=== PATIENT | female | born 1975 | race Caucasian/White ===

== ENCOUNTER 2020-08-06 07:24 | Outpatient (CLI) | payer BC, SELFPAY ==
--- NOTE | ~2020-08-06 | MM_ITS ---
EXAMINATION: MM screening víctor BI w shandra HISTORY: Screening mammogram TECHNIQUE: Craniocaudal and mediolateral oblique 3-D tomosynthesis images were obtained and synthetic 2-D images were generated. CAD analysis was submitted and interpreted. COMPARISON: None, baseline BREAST PARENCHYMAL COMPOSITION: The breasts are heterogeneously dense, which may obscure small masses . FINDINGS: RIGHT BREAST: There is no evidence of suspicious mass, calcification, or architectural distortion to suggest malignancy. LEFT BREAST: An asymmetry is present in the anterior third of the lower-outer breast 3 cm from the ni pple best appreciated on craniocaudal tomosynthesis image 16/64. IMPRESSION: 1. Left breast asymmetry. 2. Additional mammographic views and possible breast ultrasound are recommended to evaluate for malig brad and establish a baseline given that this is the first mammographic examination. BI-RADS Category 0: Incomplete: Needs additional imaging evaluation. Reviewed, dictated and finalized at location A. D EXTRACTOR OPERATOR IMPRESSION: 1. Left breast asymmetry. 2. Additional mammographic views and possible breast ultrasound are recommended to evaluate for malignancy and establish a baseline given that this is the fir st mammographic examination. BI-RADS Category 0: Incomplete: Needs additional imaging evaluation.
== END 2020-08-06 07:25 | disposition home or self-care (01) ==
LOC: ANHIMG 07:30
PROVIDERS: PCP Family Medicine
DX: Z12.31 Encounter for screening mammogram for malignant neoplasm of breast (principal); R92.8 Other abnormal and inconclusive findings on diagnostic imaging of breast
CPT/HCPCS: 77063; 77067

== ENCOUNTER 2020-09-01 13:56 | Outpatient (CLI) | payer BC, SELFPAY ==
--- NOTE | ~2020-09-01 | MM_ITS ---
EXAMINATION: MM diagnostic mammo unilat LT HISTORY: Left breast mammographic asymmetry reported on 08/06/2020 screening mammogram TECHNIQUE: Additional 3-D tomosynthesis images of the left breast were performed and synthetic 2-D im ages were generated. CAD analysis was submitted and interpreted. COMPARISON: 08/06/2020 bilateral digital screening mammogram FINDINGS: No suspicious mass is evident on these supplemental views, particularly cone compression cr aniocaudal view. The previously reported asymmetry is no longer present. IMPRESSION: 1. No mammographic evidence of malignancy 2. Routine annual mammographic screening is recommended. BI-RADS Category 1: Negative Reviewed, dictated and finalized at location A. CULTURAL SERVICES DIRECTOR
== END 2020-09-01 13:57 | disposition home or self-care (01) ==
LOC: ANHIMG 14:01
PROVIDERS: PCP Family Medicine
DX: R92.8 Other abnormal and inconclusive findings on diagnostic imaging of breast (principal)
CPT/HCPCS: 77065

== ENCOUNTER 2020-10-13 13:31 | Outpatient (CLI) | payer BC, SELFPAY | END 2020-10-13 13:32 | disposition home or self-care (01) | LOC: ANHCOVIDVC 13:31 | PROVIDERS: PCP Family Medicine | DX: Z23 Encounter for immunization (principal) | CPT/HCPCS: 0001A; 91300 ==

== ENCOUNTER 2020-11-03 14:05 | Outpatient (CLI) | payer BC, SELFPAY | END 2020-11-03 14:06 | disposition home or self-care (01) | LOC: ANHCOVIDVC 14:05 | PROVIDERS: PCP Family Medicine | DX: Z23 Encounter for immunization (principal) | CPT/HCPCS: 0002A; 91300 ==

== ENCOUNTER 2021-10-21 09:33 | Outpatient (CLI) | payer BC, SELFPAY ==
--- NOTE | ~2021-10-21 | MM_ITS ---
EXAMINATION: MM screening víctor BI w shandra HISTORY: Screening TECHNIQUE: Craniocaudal and mediolateral oblique 3-D tomosynthesis images were obtained and synthetic 2-D images were generated. CAD analysis was submitted and interpreted. COMPARISON: 08/06/2020 BREAST PARENCHYMAL COMPOSITION: The breasts are heterogeneously dense, which may obscure small masses . FINDINGS: There is no evidence of suspicious mass, calcification, or architectural distortion to sugg est malignancy in either breast. There has been no suspicious interval change. IMPRESSION: 1. No mammographic evidence of malignancy. 2. Recommend routine screening mammography in one year. BI-RADS Category 1: Negative Reviewed, dictated and finalized at location A.
== END 2021-10-21 09:34 | disposition home or self-care (01) ==
LOC: ANHIMG 09:36
PROVIDERS: PCP Family Medicine; Visit Provider Nurse Practitioner Family
DX: Z12.31 Encounter for screening mammogram for malignant neoplasm of breast (principal)
CPT/HCPCS: 77063; 77067

== ENCOUNTER 2023-04-11 00:40 | Day surgery (SDC) | payer BC, SELFPAY ==
[2023-03-30 11:27] VITALS: BMI 24.7
[2023-04-11 08:51] VITALS: BP 109/60; PULSE 70; RESP 18; TEMP 36.2; O2SAT 100
[2023-04-11] MEDS: LACTATED RINGERS 1,000 ML 150 ML IV CONT (09:01)
--- NOTE | 2023-04-11 09:23 | PM.HPGS ---
History of Present Illness History of Present Illness Consent: Risks, benefits, and alternatives have been discussed and questions answered. Patient agrees to proceed with procedure. Chief complaint: neoplasm screening Narrative: Cadence Ackerman is a 47 year old female here for first screening colonoscopy Review of Systems Constitutional: Constitutional: Denies headache(s) and Denies weakness Eyes: Eyes: Denies blurry vision ENT: Reports Normal hearing present, Denies headache(s) and Denies neck pain Cardiovascular: Cardiovascular: Denies chest pain and Denies dyspnea Respiratory: Respiratory: Denies dyspnea Gastrointestinal: Gastrointestinal: Reports no additional gastrointestinal complaints Genitourinary: Genitourinary: Denies dysuria Musculoskeletal: Musculoskeletal: Denies neck pain Integumentary/Breasts: Skin/Breast: Denies dry skin Neurologic: Reports Normal hearing present, Denies headache(s) and Denies weakness Psychiatric: Psychiatric: Denies anxiety Endocrine: Endocrine: Denies change in body appearance Hematologic/Lymphatic: Hematologic/Lymphatic: Denies easy bleeding Allergic/Immunologic: Allergic/Immunologic: Denies urticaria PMFSH Past Medical History Medical History (Updated 04/11/23 @ 09:24 by Fran Reza MD) Allergic migraine Allergies Encounter for screening colonoscopy Endometriosis Gluten intolerance Infertility Surgical History Surgical History S/P Family History Family History Other Carcinoma of colon Thyroid disease Social History Social History (Updated 06/30/20 @ 09:52 by Halley Turner) Social History: Smoking status: Never smoker Second hand tobacco smoke exposure: No Alcohol intake: current Drinks per week: 2 Substance use: never Substance use type: does not use Living arrangements: with family Occupation/Education: unemployed Additional occupation/education comments: Homemaker Gender identity (if verbalized by the patient): Female Sexual Orientation (if Verbalized by the Patient): Straight or Heterosexual Spiritual care concerns: No Meds Home Medications and Allergies Home Medications Medication Instructions Recorded Confirmed Type sumatriptan succinate 100 mg 100 mg PO .qd PRN migraine 05/17/21 03/30/23 Rx tablet (Imitrex) headache #10 tabs montelukast 10 mg tablet See Rx Instructions .Route 01/13/22 03/30/23 Rx .COMPLEX #90 tabs Allergies Allergy/AdvReac Type Severity Reaction Status Date / Time No Known Allergies Allergy Verified 04/11/23 08:54 Vital Signs Vital Signs - 24 hr 04/11/23 08:51 Temperature 97.2 F L Pulse Rate 70 Respiratory Rate 18 Blood Pressure 109/60 Pulse Oximetry 100 Oxygen Delivery Room Air Exam Const: General: comfortable and no acute distress HENMT: Face/Nose/Sinus: Normal nares present Eyes: General: appearance normal, both eyes and all related structures Neck: Neck: no JVD Resp: Auscultation: clear to auscultation bilaterally Cardio: Rate: regular rate Rhythm: regular rhythm GI: Inspection: non-distended GI Palp: Yes Soft to palpation Skin: General skin exam: normal color Neuro: General: gait normal Speech: normal speech Extrem: General: normal to inspection Psych: Mental Status: mental status grossly normal Assessment and Plan Assessment and plan (1) Encounter for screening colonoscopy: Code(s): Z12.11 - Encounter for screening for malignant neoplasm of colon Status: Acute Assessment and Plan: colonoscopy
[2023-04-11 09:42] VITALS: BP 91/55; PULSE 68; RESP 14; O2SAT 100
[2023-04-11 09:52] VITALS: BP 94/55; PULSE 62; RESP 15; O2SAT 99
[2023-04-11 10:02] VITALS: BP 104/65; PULSE 72; RESP 22; O2SAT 98
== END 2023-04-11 10:13 | disposition home or self-care (01) ==
PROVIDERS: PCP Family Medicine; Visit Provider Internal Medicine Gastroenterology
PROC: 0DJD8ZZ Inspection of Lower Intestinal Tract, Via Natural or Artificial Opening Endoscopic (ICD-10-PCS; CPT 45378; principal; 2023-04-11 10:15)
DX: Z12.11 Encounter for screening for malignant neoplasm of colon (principal); K57.30 Diverticulosis of large intestine without perforation or abscess without bleeding; K64.8 Other hemorrhoids
CPT/HCPCS: 45378; J2704; J7120

== ENCOUNTER 2023-06-28 08:35 | Outpatient (CLI) | payer BC, SELFPAY ==
--- NOTE | ~2023-06-28 | MM_ITS ---
EXAMINATION: MM screening [facility] BI w shandra HISTORY: Screening mammogram TECHNIQUE: Craniocaudal and mediolateral oblique 3-D tomosynthesis images were obtained and synthetic 2-D images were generated. CAD analysis was submitted and interpreted. COMPARISON: 10/21/2021, 09/01/2020, 08/06/2020 BREAST PARENCHYMAL COMPOSITION: The breasts are heterogeneously dense, which may obscure small masses . FINDINGS: No suspicious mass, calcification, or architectural distortion are identified in either ilsa ast to suggest malignancy. There has been no suspicious interval change. IMPRESSION: 1. No mammographic evidence of malignancy. 2. Recommend routine screening mammography in one year. BI-RADS Category 1: Negative Reviewed, dictated and finalized at location A. T ANALYST
== END 2023-06-28 08:36 | disposition home or self-care (01) ==
LOC: ANHIMG 08:38
PROVIDERS: PCP Family Medicine; Visit Provider Family Medicine
DX: Z12.31 Encounter for screening mammogram for malignant neoplasm of breast (principal)
CPT/HCPCS: 77063; 77067

== ENCOUNTER 2024-04-25 13:23 | Outpatient (CLI) | payer BC, SELFPAY ==
[2024-04-25 14:51] LABS: Thyroid Stimulating Hormone 0.255 uIU/mL (0.465-4.680)
[2024-04-26 12:18] LABS: FSH 2.3 mIU/mL; Prolactin 3.2 ng/mL
[2024-04-28 20:14] LABS: Testosterone Total 4 ng/dL (2-45)
== END 2024-04-25 13:24 | disposition home or self-care (01) ==
PROVIDERS: PCP Family Medicine; Visit Provider Student in an Organized Health Care Education/Training Program
DX: N95.1 Menopausal and female climacteric states (principal)
CPT/HCPCS: 36415; 82670; 83001; 84146; 84403; 84443

== ENCOUNTER 2024-08-05 08:52 | Outpatient (CLI) | payer BC, SELFPAY ==
--- NOTE | ~2024-08-05 | MM_ITS ---
EXAMINATION: MM screening víctor BI w shandra HISTORY: Screening. Patient on hormone replacement therapy. TECHNIQUE: Craniocaudal and mediolateral oblique 3-D tomosynthesis images were obtained and synthetic 2-D images were generated. CAD analysis was submitted and interpreted. COMPARISON: Comparison to multiple prior studies sequentially, with oldest reviewed study dated 08/06. BREAST PARENCHYMAL COMPOSITION: Dense: The breasts are heterogeneously dense, which may obscure small masses FINDINGS: Increased density of both breasts, consistent with hormone replacement therapy. There is no evidence of suspicious mass, calcification, or architectural distortion to suggest malignancy in eit her breast. There has been no suspicious interval change. IMPRESSION: 1. No mammographic evidence of malignancy. 2. Recommend routine screening mammography in one year. BI-RADS Category 1: Negative Reviewed, dictated and finalized at location B. OPERATIONS SPECIALIST
--- OUTSIDE RECORDS SUMMARY | 2024-08-05 09:12 | XMS_ITS | Encounter Summary ---
Author Organization [facility] Healthcare Address [address] [place] [address] Care Team Providers Care Internal Affairs Commander Name Role Phone Nestor Mckinley MD Primary Care Provider [phone] Bernarda Nicholson MD Unavailable [phone] Abdirahman Ram MD Unavailable [phone] No, Physician Primary Care Provider Nestor Mckinley MD Primary Care Provider [phone] Abhishek Elizabeth MD Unavailable [phone] Todd Gomez MD Primary Care Provider [phone] Encounter Details Date Type Department Care Team (Late st Contact Info) Description 11/19/2017 Documentation [facility] [address] [place] [address] Margy Knight LPN Social History Tobacco Use Types Packs/Day Years Used Date Smoking Tobacco: Never Smokeless Tobacco: Never Alcohol Use Standard Drinks/Week Comments No 0 (1 standard drink = 0.6 oz pur e alcohol) Comments No Sex and Gender Information Value Date Recorded Sex Assigned at Not on file Legal Sex Female 10:37 AM DIRECTOR OF OPERATIONS FOR THERAPY Gender Identity Not on file Sexual Orientation Not on file documented as of this encounter Miscellaneous Notes * Note - Margy Knight LPN - 11/19/2017 3:13 PM CDT 0900 Discussed info and expectations. Pt states she has a Medela pump at home. States has been doing a really good job at breast. Observed Shawna Moran, to right cradle hold transitioned to nutritive bursts. In progress. Mom has large breasts and large erect nipples. Pt denies questions or concerns at this time. Getting ready for home. Continue to track diapers, and feedings Watch for effective Transfer of milk and satiety Maternal diet discussed with rest and hydration. When to expect full milk supply to come in. Gave handouts instructing in BFSG and LC services. Diary, Hand expression, Message, Videos. Encouraged to call prn for assistance and to attend the BFSG. documented in this encounter Plan of Treatment Not on file documented as of this encounter Visit Diagnoses Not on filedocumented in this encounter Care Teams Internal Affairs Commander Relationship Specialty Start Date End Date Nestor Mckinley MD [address] [place] [address] PCP - General 07/12/17 02/19/19 No, Physician PCP - General 02/20/19 04/05/19 Nestor Mckinley MD [address] [place] [address] PCP - General 04/06/19 11/11/21 Todd Gomez MD [address] [address] PCP - General Family Medicine 11/12/21 Bernarda Nicholson MD [address] [place] [address] Manager Floral Obstetrics and Gynecology 09/06/17 Abdirahman Ram MD [address] [place] [address] Consulting Physician Obstetrics and Gynecology 10/01/18 Abhishek Elizabeth MD [address] [address] Obstetrics and Gynecology 11/11/21 documented as of this encounter
--- OUTSIDE RECORDS SUMMARY | 2024-08-05 09:12 | XMS_ITS | Clinical Summary ---
Author Organization [facility] Address [address] [place] [address] Care Team Providers Care Manager Chemistry Name Role Phone Nestor Mckinley MD Primary Care Provider [phone] Source Comments [facility],non-owned Affiliates and Associated Physician Practices is amultiple site organization consisting of ambulatory clinics and hospital sitesin [place], [place], [place] and [place]. This disclosure is being madepursuant to the Care Everywhere program and may not contain all information available regarding this patient. Last updated 18.[facility] [employer] Allergies Active Allergy Reactions Criticality Noted Date Comments Gluten Meal Urticaria,Diarrhea,GI Discomfort Medium Medications * Be aware that medications may not be up to date on this document. Alwaysverify current medications with the patient. Medication Sig Dispensed Refills Start Date End Date Status multivitamin daily (THERAGRAN) tablet Take 1 Tab by mouth daily with food Active [place]-3 350 MG CPDR once daily Active fluticasone propionate (FLONASE) 50 MCG/ACT nasal spray [place] 1-2 sprays into the nose every 24 hours Active doxycycline hyclate (VIBRAMYCIN) 100 MG capsule 05/13/2021 Active montelukast (SINGULAIR) 10 MG tablet Take by mouth every 24 hours Active predniSONE (DELTASONE) 20 MG tablet as needed 05/13/2021 Active calcium citrate TABS tablet Take 400 mg by mouth once daily Active Ferrous Sulfate 27 MG Take 10 mg by mouth once daily Active acetaminophen (TYLENOL) 325 MG tabletIndications: Endometriosis,Post operative state Take 2 (two) tablets by mouth every 6 hours as needed for Fever or Pain Maximum allowable Acetaminophen amount = 4 Grams (4000 mg) / 24 hours. 60 tablet 1 08/26/2021 Active oxyCODONE, immediate release, (ROXICODONE) 5 MG tabletIndications: Endometriosis,Post operative state Take 1 (one) tablet by mouth every 4 hours as needed for Pain 30 tablet 08/26/2021 Active Additional Information Patient not taking.Reported on 10/13/2021 ibuprofen (MOTRIN) 600 MG tabletIndications: Endometriosis,Post operative state Take 1 (one) tablet by mouth every 6 hours as needed for Pain 30 tablet 1 08/26/2021 Active Additional Information Patient not taking.Reported on 10/13/2021 ropivacaine (NAROPIN ON-Q) 0.2% infusionIndication s:Endometriosis,Po stoperative state 550 mL by Infiltration route continuous Please remove the On-Q after 72 hours. 08/26/2021 Active Additional Information Patient not taking.Reported on 10/13/2021 senna (SENOKOT) 8.6 MG tabletIndications: Endometriosis,Post operative state Take 1 (one) tablet by mouth once daily Hold for loose stools. 30 tablet 08/26/2021 Active Additional Information Patient not taking.Reported on 10/13/2021 Active Problems Problem Noted Date Diagnosed Date Postoperative state 08/26/2021 Endometriosis 02/25/2015 Dysmenorrhea 02/25/2015 Endometriosis Overview (03/26/2015): Social History Tobacco Use Types Packs/Day Years Used Date Smoking Tobacco: Never Smokeless Tobacco: Never Alcohol Use Standard Drinks/Week Comments Yes 0 (1 standard drink = 0.6 oz pur e alcohol) occ AUDIT-C Answer Date Recorded Q1: How often do you have a drink containing alc ohol? Never 08/26/2021 Average Number of Drinks Not on file 022 Frequency of Binge Drinking Not on file 08/2021 Sex and Gender Information Value Date Recorded Sex Assigned at Not on file Gender Identity Not on file Sexual Orientation Not on file Last Filed Vital Signs Vital Sign Reading Time Taken Comments Blood Pressure 108/62 10/13/2021 11:03 AM CDT Pulse 82 08/27/2021 8:20 AM BIODIESEL DIVISION MANAGER Temperature 37.1 C (98.7 F) 08/27/2021 8:20 AM BIODIESEL DIVISION MANAGER Respiratory Rate 16 08/27/2021 8:20 AM BIODIESEL DIVISION MANAGER Oxygen Saturation 98% 08/27/2021 8:20 AM BIODIESEL DIVISION MANAGER Inhaled Oxygen Concentration - - Weight 63.5 kg (140 lb) 10/13/2021 11:03 AM CDT Height 160 cm (5' 3 ) 10/13/2021 11:03 AM CDT Body Mass Index 24.8 10/13/2021 11:03 AM CDT Plan of Treatment Health Maintenance Due Date Last Done Comments COLOGUARD (AGES 45-75) - COLON CA SCREENING 1976 COLON MONITORING 1976 COLONOSCOPY - COLON CA SCREENING 1976 CT COLONOGRAPHY - COLON CA SCREENING 1976 Colorectal Cancer Screening 1976 FIT - COLON CA SCREENING 1976 FLEX SIG - COLON CA SCREENING 1976 LIPID TESTING 1976 MAMMOGRAM 1976 HIV SCREENING 12/26/1991 HEPATITIS C SCREENING 12/21/1994 DTAP/TDAP/TD VACCINES (1 - Tdap) 12/26/1995 HEPATITIS B VACCINE (1 of 3 - 19+ 3-dose series) 12/26/1995 COVID-19 VACCINE (3 - 2023- season) 2024 11/03/2020, 10/13/2020 INFLUENZA VACCINE (#1) 2024 , 03/25/2020, 04/03/2019, Additional history exists DEPRESSION SCREENING 06/26/2024 ZOSTER VACCINE (1 of 2) 2026 HIB VACCINE Aged Out No longer eligi ble based on patient's age to complete this topic HPV VACCINE Aged Out No longer eligi ble based on patient's age to complete this topic MENINGOCOCCAL (Group B) VACCINE Aged Out No longer eligible based on patient's age to complete this topic MENINGOCOCCAL VACCINE Aged Out No heaven renita eligible based on patient's age to complete this topic PNEUMOCOCCAL VACCINE Aged Out No long er eligible based on patient's age to complete this topic Care Teams Manager Chemistry Relationship Specialty Start Date End Date Nestor Mckinley MD [facility] [place] [address] PCP - General Family Medicine 02/23/15
--- OUTSIDE RECORDS SUMMARY | 2024-08-05 09:12 | XMS_ITS | Referral Summary ---
Author Organization [facility] Address [address] [place] [address] Care Team Providers Care Sifting Operator Name Role Phone Nestor Mckinley MD Primary Care Provider [phone] Source Comments [facility],non-owned Affiliates and Associated Physician Practices is amultiple site organization consisting of ambulatory clinics and hospital sitesin [place], [place], [place] and [place]. This disclosure is being madepursuant to the Care Everywhere program and may not contain all information available regarding this patient. Last updated 18.[facility] [employer] Allergies Active Allergy Reactions Criticality Noted Date Comments Gluten Meal Urticaria,Diarrhea,GI Discomfort Medium Medications * Be aware that medications may not be up to date on this document. Alwaysverify current medications with the patient. Medication Sig Dispensed Refills Start Date End Date Status multivitamin daily (THERAGRAN) tablet Take 1 Tab by mouth daily with food Active [place]-3 350 MG CPDR once daily Active fluticasone propionate (FLONASE) 50 MCG/ACT nasal spray [place] 1-2 sprays into the nose every 24 [...] AM CDT Pulse 82 08/27/2021 8:20 AM CASEWORK SPECIALIST Temperature 37.1 C (98.7 F) 08/27/2021 8:20 AM CASEWORK SPECIALIST Respiratory Rate 16 08/27/2021 8:20 AM CASEWORK SPECIALIST Oxygen Saturation 98% 08/27/2021 8:20 AM CASEWORK SPECIALIST Inhaled Oxygen Concentration - - Weight 63.5 kg (140 lb) 10/13/2021 11:03 AM CDT Height 160 cm (5' 3 ) 10/13/2021 11:03 AM CDT Body Mass Index 24.8 10/13/2021 11:03 AM CDT Plan of Treatment Not on file Care Teams Sifting Operator Relationship Specialty Start Date End Date Nestor Mckinley MD [address] [place] [address] PCP - General Family Medicine 02/23/15
--- OUTSIDE RECORDS SUMMARY | 2024-08-05 09:12 | XMS_ITS | Encounter Summary ---
Author Organization [facility] Healthcare Address [address] [place] [address] Care Team Providers Care Community Arts Worker Name Role Phone Bernarda Nicholson MD Unavailable [phone] Abdirahman Ram MD Unavailable [phone] Abhishek Elizabeth MD Unavailable [phone] Todd Gomez MD Primary Care Provider [phone] Reason for Visit * Reason Onset Date Comments Sinus Problem 07/25/2024 Encounter Details Date Type Department Care Team (Late st Contact Info) Description 07/25/2024 Nurse Triage [facility] Primary Care at [address] [address] Todd Gomez MD [address] [place] [address] [address] [place] [address] Social History Tobacco Use Types Packs/Day Years Used Date Smoking Tobacco: Never Passive Smoke Exposure: Never Smokeless Tobacco: Never Alcohol Use Standard Drinks/Week Comments Not Currently 0 (1 standard drink = 0.6 oz pur e alcohol) Humiliation, Afraid, Rape, and Kick questionnair e Answer Date Recorded Fear of Current or Ex-Partner No Emotionally Abused No 10/01/2018 Physically Abused No 10/01/2018 Sexually Abused No 10/01/2018 AUDIT-C Answer Date Recorded Q1: How often do you have a drink containing alc ohol? 2-3 times a week 05/02/2022 Q2: How many drinks containi ng alcohol do you have on a typical day when you are drinking? 1 or 2 05/02/2022 Q3: How often do you have si x or more drinks on one occasion? Never 05/02/2022 PHQ-2 Answer Date Recorded PHQ-2 Total Score (If total score is 3 or more points, staff should administer the PHQ-9) 0 03/06/2024 [place] Depression Scale Answer Date Recorded [place] Depression Scale Total 3 04/15/2019 The thought of harming myself has occurred to me . Never 04/15/2019 Comments No Sex and Gender Information Value Date Recorded Sex Assigned at Not on file Legal Sex Female 10:37 AM SILVERLIGHT DEVELOPER Gender Identity Not on file Sexual Orientation Not on file documented as of this encounter Miscellaneous Notes * Telephone Encounter - Lynn Frey MA - 07/25/2024 11:23 AM SILVERLIGHT DEVELOPER Spoke to pt, informed pt that the cost at the [facility] is the same as the copay for an office visit, an urgicare is more costly, gave pt hours of operation for [facility].. Pt voiced understanding ERLIGHT DEVELOPER * Telephone Encounter - Danielle Coffey RN - 07/25/2024 8:40 AM CST Sinus pressure and drainage. Symptoms began 4-5 days ago. Denies fever. Yellowish drainage. Sinus pressure in forehead. Nothing helping OTC. 12/03 pressure. Tylenol with Excedrin helps. Pt requesting antibiotic. Preferred Pharmacy [id number] - [place], [place] - [address] [facility] ([place] [address] & [address] [facility] [address] Allergies as of 07/25/2024 - Reviewed 05/08/2024 Allergen Reaction Noted Gluten Diarrhea, Stomach upset, and Urticaria 08/27/2021 Mold Sneezing 07/20/2021 Discussed care advice and worsening signs and symptoms of condition on which to call back. Pt verbalizes understanding. Reason for Disposition Sinus congestion as part of a cold, present < 10 days Protocols used: Sinus Pain or [id number] ERLIGHT DEVELOPER * Telephone Encounter - Danielle Coffey RN - 07/25/2024 8:38 AM CST Regarding: sinus drainage, headache ----- Message from Krystal Kennedy sent at 07/25/2024 8:28 AM SILVERLIGHT DEVELOPER ----- Symptom Based Call Chief Complaint(s): sinus drainage, headache Duration: 4 days What type of symptom(s) is the patient experiencing? Non-Emergent. Is this a new or reoccurring symptom(s)? new What have you tried to help your symptom(s)? Sinus rinse, tylenol and advil Why was appointment not scheduled? Appointment availability did not meet the patient's need. Additional Comments: lots of sinus drainage and headache, no fever- headache pain intensifies when she bends over or coughs Does message need to be routed? Yes-Action Needed ERLIGHT DEVELOPER documented in this encounter Plan of Treatment Not on file documented as of this encounter Visit Diagnoses Not on filedocumented in this encounter Care Teams Community Arts Worker Relationship Specialty Start Date End Date Todd Gomez MD [address] [place] [address] PCP - General Family Medicine 11/12/21 Bernarda Nicholson MD Wire Saw Operator Obstetrics and Gynecology 09/06/17 Abdirahman Ram MD Consulting Physician Obstetrics and Gynecology 10/01/18 Abhishek Elizabeth MD [address] [address] Obstetrics and Gynecology 11/11/21 documented as of this encounter
--- OUTSIDE RECORDS SUMMARY | 2024-08-05 09:12 | XMS_ITS | Data Portability ---
Author Organization [place] - [facility] , [facility] Address [address] [place] [address] Assessment Encounter Date Assessment Date Assessment LastModified by Organization Details LastModified Time 07/25/2024 07/25/2024 Presents with headache, cough, nasal drainage, nasal congestion x5 days. Denies fever, chills, sore throat, chest discomfort or shortness of breath. Impression: acute viral sinusitis. Differential diagnosis includes influenza, COVID, acute pharyngitis. Will trial with a short course of prednisone and ipratropim spray for sxs relief. - Discussed abx indication with pt as abx will not work on viral infection or allergies. - Advised pt to continue with supportive measures at home and contact if no improvement. - Blow nose gently - Sleep on elevated pillows - Trial of Claritin D or Zyrtec D for congestion. - Irrigate sinuses in a warm steamy shower with salt water twice a day - Apply warm compresses to the face 20-30 mins [email or web address] Not available 07/25/2024 16:29:28 Plan of Treatment Reminders Order Date Submit Date Provider Last Modified By Organization Details Last Modified Time Details Appointments None recorded. Lab None recorded. Referral None recorded. Procedures None recorded. Surgeries None recorded. Imaging None recorded. Medication Orders prednisone 20 mg tablet 2024 025 [id number], [address] [place], [id number], 16:29:38 ipratropium bromide 42 mcg (0.06 %) nasal spray 2024 025 [facility][id number], [address], [phone], 16:29:38 Patient TargetsNo targets recorded. Patient Instructions Encounter Date Encounter Id Patient Instructions Last Modified By Organization Details Last Modified Time 07/25/2024 [id number] Acute Sinusitis: Care Instructions [email or web address] Not available 07/25/2024 16:29:32 Reason for Referral None Reported. Medical Equipment None Reported. Medications Name Sig Start Date Stop Date Status Note LastModified by Organization Details LastModified Time Singulair 10 mg tablet active ADDED BY KAREN T: Not Available Not Available Not Available prednisone 20 mg tablet Take 1 tablet every day by oral route for 3 days. 2024 active Not Available Not Available Not Avai lable ipratropium bromide 42 mcg (0.06 %) nasal spray [place] 2 sprays 3 times a day by intranasal route for 5 days. 2024 active Not Available Not Available Not Avai lable Vitals None Recorded Social History None recorded. Functional Status None recorded. Mental Status None recorded. Family History Nothing Reported. Medical History No medical history recorded. Gynecological HistoryNo gynecological history recorded. Obstetrics History GPAL:G 0 P 0 0 0 0 Past Encounters Encounter ID Performer Location Encounter Start Date Encounter Closed Date Diagnosis/Indication Diagnosis SNOMED-CT Code Diagnosis ICD10 Code Diagnosis Note [id number] CHARLETTE Riggins [facility] [address] [place] [address] 07/25/2024 16:17:04 07/25/2024 22:24:07 Acute sinusitis 09358227 J01.90 Health Concerns Section Related Observation LastModified by Organization Detai ls LastModified Time None Recorded Concern Status LastModified by Organization Details LastModified Time None Recorded Advance Directives Directive None Recorded Payers Encounter Date Sequence Insurance Name Policy Number Policy June Covered Member ID June Member ID Guarantor Name 07/25/2024 1 [facility] [id number] Jeffrey Ackerman [id number] Jeffrey Ackerman 07/25/2024 2 *SELF PAY* [id number] Jeffrey Ackerman [id number] Jeffrey Meka Notes Date Note Type Note Provider Name and Address Organization Details Recorded Time 07/25/2024 text/html Call connected, patient greeted. Patient name, , telephone number, and location verified verbally with the patient. Telemedicine limitations reviewed, answered all questions the patient had about the telehealth interaction, and verbal consent obtained to treat. Clinician attests they are physically located in the following state at the time of visit: [place]. The patient also consents to the use of [employer] scribe technology.CC: Sinus infection with headachesHPI: 48yo female patient reports headaches, cough, congestion x4-5 days. The current headache is rated as a 4/10 but peaked at a 6/10 earlier. There has been no fever, chills, or sore throat, and the patient notes infrequent coughing, occurring only once or twice a day. They mention yellow nasal mucus. The patient is currently self-administering a nasal saline rinse thrice daily and Flonase nasal spray twice daily. They have not been tested for COVID-19 or influenza. The patient denies nausea or vomiting. CHARLETTE Riggins [address] [place] [address] [address], [place], [address], [facility] 07/25/2024 16:29:35 OBGyn Episode No OBEpisode recorded.
--- OUTSIDE RECORDS SUMMARY | 2024-08-05 09:12 | XMS_ITS | Patient Health Summary ---
Author Organization [facility] Address [address] [place] [address] Care Team Providers Care Irradiated Fuel Handler Name Role Phone Nestor Mckinley MD Primary Care Provider [phone] Note [address] [facility],non-owned Affiliates and Associated Physician Practices is amultiple site organization consisting of ambulatory clinics and hospital sitesin [place], [place], [place] and [place]. This disclosure is being madepursuant to the Care Everywhere program and may not contain all information available regarding this patient. Last updated 18.[facility] Allergies * Gluten Meal(Urticaria,Diarrhea,GI Discomfort) -Medium Criticality * Amoxicillin-Pot Clavulanate(Urticaria,Itching) -Medium Criticality,Inactive * Augmentin(Urticaria) -Medium Criticality,Inactive * Guaifenesin(Urticaria,Itching) -Medium Criticality,Inactive Medications * Be aware that medications may not be up to date on this document. Alwaysverify current medications with the patient. * multivitamin daily (THERAGRAN) tablet Take 1 Tab by mouth daily with food * [place]-3 350 MG CPDR once daily * fluticasone propionate (FLONASE) 50 MCG/ACT nasal spray [place] 1-2 sprays into the nose every 24 hours * doxycycline hyclate (VIBRAMYCIN) 100 MG capsule(Started 05/13/2021) * montelukast (SINGULAIR) 10 MG tablet Take by mouth every 24 hours * predniSONE (DELTASONE) 20 MG tablet(Started 05/13/2021) as needed * calcium citrate TABS tablet Take 400 mg by mouth once daily * Ferrous Sulfate 27 MG Take 10 mg by mouth once daily * acetaminophen (TYLENOL) 325 MG tablet(Started 08/26/2021) Take 2 (two) tablets by mouth every 6 hours as needed for Fever or Pain Maximum allowable Acetaminophen amount = 4 Grams (4000 mg) / 24 hours. 1 refill by 08/26/2022 * oxyCODONE, immediate release, (ROXICODONE) 5 MG tablet(Started 08/26/2021) Take 1 (one) tablet by mouth every 4 hours as needed for Pain * ibuprofen (MOTRIN) 600 MG tablet(Started 08/26/2021) Take 1 (one) tablet by mouth every 6 hours as needed for Pain 1 refill by 08/26/2022 * ropivacaine (NAROPIN ON-Q) 0.2% infusion(Started 08/26/2021) 550 mL by Infiltration route continuous Please remove the On-Q after 72 hours. * senna (SENOKOT) 8.6 MG tablet(Started 08/26/2021) Take 1 (one) tablet by mouth once daily Hold for loose stools. Active Problems Problem Noted Date Diagnosed Date Postoperative state 08/26/2021 Endometriosis 02/25/2015 Dysmenorrhea 02/25/2015 Endometriosis Social History Tobacco Use Types Packs/Day Years [...] AM CDT Pulse 82 08/27/2021 8:20 AM SHOVEL LOADER OPERATOR Temperature 37.1 C (98.7 F) 08/27/2021 8:20 AM SHOVEL LOADER OPERATOR Respiratory Rate 16 08/27/2021 8:20 AM SHOVEL LOADER OPERATOR Oxygen Saturation 98% 08/27/2021 8:20 AM SHOVEL LOADER OPERATOR Inhaled Oxygen Concentration - - Weight 63.5 kg (140 lb) 10/13/2021 11:03 AM CDT Height 160 cm (5' 3 ) 10/13/2021 11:03 AM CDT Body Mass Index 24.8 10/13/2021 11:03 AM CDT Procedures * CARDIAC RHYTHM STRIP ORDER(Performed 08/27/2021) * PATHOLOGY TISSUE EXAM (STL)(Performed 08/26/2021) Performed for Diagnosis unknown * ENDOTRACHEAL TUBE NOTE(Performed 08/26/2021) * SD LAP,FULGURATE/EXCISE LESIONS(Performed 08/26/2021) Performed for Diagnosis unknown * SD LAP,DIAGNOSTIC ABDOMEN(Performed 08/26/2021) Performed for Diagnosis unknown * LAPAROSCOPIC TOTAL HYSTERECTOMY (TLH)(Performed 08/26/2021) Performed for Diagnosis unknown * HCG URINE QUAL POCT NOTIFICATION(Performed 08/26/2021) Performed for Endometriosis, Dysmenorrhea * TYPE + SCREEN PANEL(Performed 08/26/2021) Performed for Endometriosis, Dysmenorrhea * BASIC METABOLIC PANEL (CALCIUM TOTAL)(Performed 08/26/2021) Performed for Endometriosis, Dysmenorrhea * CBC W AUTO DIFFERENTIAL(Performed 08/26/2021) Performed for Endometriosis, Dysmenorrhea * HCG URINE QUALITATIVE - POCT (IP) INTERFACED(Performed 08/26/2021) * SD SONO EXAM, TRANSVAGINAL(Performed 08/13/2021) Performed for Dysmenorrhea * IMAGING/RADIOLOGY/XRAY RESULTS ORDER(Performed 08/13/2021) * PATHOLOGY TISSUE(Performed 05/14/2021) Performed for Abnormal uterine bleeding (AUB) * HCG URINE QUALITATIVE - POINT OF CARE (AMB)(Performed 05/14/2021) Performed for examination or test, negative result * CBC W AUTO DIFFERENTIAL(Performed 04/16/2021) Performed for Menorrhagia with regular cycle * CARDIAC RHYTHM STRIP ORDER(Performed 02/27/2015) * PATHOLOGY TISSUE EXAM (STL)(Performed 02/25/2015) Performed for Endometriosis, site unspecified [617.9], Dysmenorrhea [625.3] * LAPAROSCOPY DIAGNOSTIC(Performed 02/25/2015) Performed for Endometriosis, site unspecified, Dysmenorrhea * HYSTEROSCOPY DILATATION AND CURETTAGE(Performed 02/25/2015) Performed for Endometriosis, site unspecified, Dysmenorrhea * LAPAROSCOPIC CHROMOTUBATION(Performed 02/25/2015) Performed for Endometriosis, site unspecified, Dysmenorrhea * LAPAROSCOPIC FULGURATION/EXCISION LESION PELVIC/OVARY (LASER)(Performed 02/25/2015) Performed for Endometriosis, site unspecified, Dysmenorrhea * HCG URINE QUALITATIVE - POINT OF CARE(Performed 02/25/2015) * PATHOLOGY/GENETICS HISTORICAL-ONBASE(Performed 02/25/2015) * BLOOD TYPE VERIFICATION(Performed 02/24/2015) Performed for Endometriosis, site unspecified * TYPE + SCREEN PANEL(Performed 02/24/2015) Performed for Endometriosis, site unspecified * CBC W AUTO DIFFERENTIAL(Performed 02/24/2015) Performed for Endometriosis, site unspecified * LAB HISTORICAL RESULTS-ONBASE(Performed 02/24/2015) Results * CARDIAC RHYTHM STRIP ORDER (08/27/2021 10:20 PM SHOVEL LOADER OPERATOR) Only the most recent of2 resultswithin the time period is included. Narrative 08/27/2021 10:20 PM SHOVEL LOADER OPERATOR Ordered by an unspecified provider. Scanned Document CARDIAC SERVICES ORD ERABLES * PATHOLOGY TISSUE EXAM (STL) (08/26/2021 1:25 PM SHOVEL LOADER OPERATOR) Only the most recent of2 resultswithin the time period is included. Case Report Surgical Pathology Report Case: [id number] Authorizing Provider: Abhishek Elizabeth MD Collected: 08/26/2021 01:34 PM Ordering Location: [facility] Received: 08/26/2021 02:42 PM Pathologist: Lashon Cochran MD Specimens: A) - Uterus w Cervix, Uterus, cervix, bilateral tubes B) - Cul De Sac , Right posterior 08/31/2021 10:02 AM SHOVEL LOADER OPERATOR [facility] Final Diagnosis Uterus, hysterectomy (A) - Secretory endometrium - Adenomyosis - Leiomyomata, microscopic - Cervix with no histopathologic abnormality - Serosal adhesions Fallopian tubes, bilateral, salpingectomy (A) - No histopathologic abnormality Peritoneum, right posterior cul de sac, biopsy (B) - Endometriosis 08/31/2021 10:02 AM SHOVEL LOADER OPERATOR [facility] Clinical History The patient is a 45-year-old woman. Operative procedure: hysterectomy, bilateral salpingectomy, excision of endometriosis. 08/31/2021 10:02 AM [facility] Gross Description Received in formalin, labeled with the patient's name, MRN and uterus, cervix, bilateral tubes, is a 251 g gm uterus 10.5 cm cervix to fundus, 6 cm right to left and 5 cm anterior to posterior with 2 detached, unoriented fallopian tubes measuring 4 x 0.8 cm and 4 x 0.7 cm in greatest dimension respectively. The uterine serosa is agudelo-purple and focally roughened. The 2.9 x 2.8 cm ectocervix is lined by agudelo-white, glistening mucosa with a 0.5 cm ovoid os. The 3.5 x 0.6 cm endocervical canal is lined by agudelo-pink, herringbone mucosa. The 4 x 1 cm endometrial cavity is lined by red-brown, smooth endometrium], measuring up to 0.2 cm in thickness. Focal and well-circumscribed, firm, whorled white nodules up to 0.8 cm in greatest dimension. Ipsilateral fallopian tube has smooth, purple serosa and is sectioned to show a pinpoint, stellate lumen. The contralateral fallopian tube has smooth, purple serosa and is sectioned to show a pinpoint, stellate lumen. No other gross abnormalities are present. Media Monitor sections are submitted as follows: A1-anterior cervix (polypoidal lesion) A2-lower uterine segment, A3-posterior cervix (cystic), A4-lower uterine segment, A5-A6 anterior endomyometrium full-thickness bisected, A7-A8 posterior endomyometrium full-thickness bisected, A9-ipsilateral Fallopian tube with fimbria, O12-shrbectxsfgcw fallopian tube with fimbria. After initial microscopic evaluation, additional sections are submitted as follows: A11-A13 anterior endomyometrium full-thickness, A14-A17 posterior endomyometrium bisected MA B. Labeled as cul-de-sac, right posterior is a 0.5 x 0.4 x 0.2 cm agudelo-beavers, soft tissue fragment. The specimen is entirely submitted in B1. AL 08/31/2021 10:02 AM [facility] Microscopic Description Microscopic examination substantiates the above diagnosis. Deeper levels were obtained and examined, showing similar findings. 08/31/2021 10:02 AM [facility] Disclaimer All histochemical and/or immunohistochemical results are interpreted with controls that demonstrate appropriate staining reactions before reporting results. Note on use of immunocytochemistry reagents: This test was developed and its performance characteristic determined by [facility], Department of Laboratory Medicine. It has not been cleared or approved by the U.S. Food and Drug Administration (FDA). The FDA has determined that such clearance or approval is not necessary. The test is used for clinical purpose. It should not be regarded as investigational or for research. This laboratory is certified to perform high complexity testing. The performance characteristics of the IHC/TERESA assays have been validated on formalin-fixed paraffin embedded tissues only. The assays have not been validated on decalcified tissues. Results should be interpreted with caution. 08/31/2021 10:02 AM [facility] Embedded Images 08/31/2021 10:02 AM [facility] Pathology/Cytology SPECIMEN FROM UTERINE CERVIX OBTAINED BY HYSTERECTOMY / Unknown 08/26/2021 1:25 PM SHOVEL LOADER OPERATOR 08/26/2021 2:42 PM SHOVEL LOADER OPERATOR Comment:Pre-op diagnosis: Diagnosis unknown [R69] Miscellaneous samples (specimen) ENTIRE RECTOUTERINE POUCH / Unknown 08/26/2021 1:34 PM SHOVEL LOADER OPERATOR 08/26/2021 2:42 PM SHOVEL LOADER OPERATOR Comment:Pre-op diagnosis: Diagnosis unknown [R69] Abhishek Elizabeth MD LAB - PATHOLOGY/CY TOLOGY ORDERABLES Performing Organization Address [facility]/State/[facility] Co de Phone Number [facility] [address] [place] [address] * ETT LINE PERFORMABLE (08/26/2021 10:45 AM SHOVEL LOADER OPERATOR) Narrative Rom Christy DO - 08/26/2021 10:45 AM SHOVEL LOADER OPERATOR Rom Christy DO 08/26/2021 12:02 PM Endotracheal Tube Placement: Patient Location: OR. Intubation Event Date/Time: 08/26/2021 10:44 AM Procedure: intubation (06990). Procedure Section: Sedation: under general anesthesia. Indications for Airway Management: anesthesia Induction: standard IV Patient Position: sniffing Mask Ventilation: easy. Blade Type: Bhat Blade Size: 2 Laryngoscopy View: grade 2 (partial cords) Nasal Airway Size: 7 Tube: endotracheal tube Placement: oral Tube type: cuff - inflated Tube Size (MM): 7 Depth of Insertion (CM): 20 Measured From: lips Cuff Inflated With: air Number of Attempts: 1. Placement Verified By: direct visualization, bilateral breath sounds and CO2 monitor Tube secured with: adhesive tape. Dentition unchanged? Yes Procedure Start Time: 08/26/2021 10:44 AM. Procedure End Time: 08/26/2021 10:44 AM. Procedure Total Time: 0 minutes. Staff Section Anesthesia Provider: Rom Christy DO, Performed the procedure Rom Christy DO GENERAL ANESTHESIA O RDERABLES * HCG URINE QUAL POCT NOTIFICATION (08/26/2021 10:00 AM SHOVEL LOADER OPERATOR) Comment Notification Label Only - See Separate Report 08/26/2021 10:00 AM SHOVEL LOADER OPERATOR [facility] Urine URINE / Unknown 8:42 AM SHOVEL LOADER OPERATOR Abhishek Elizabeth MD LAB - URINALYSIS O LIDIA Performing Organization Address [facility] Co de Phone Number [facility] [address] [place] [address] * TYPE + SCREEN PANEL (08/26/2021 9:04 AM SHOVEL LOADER OPERATOR) Only the most recent of2 resultswithin the time period is included. ABO Rh AB NEG 08/26/2021 9:41 AM SHOVEL LOADER OPERATOR [facility] Comment:History checked. Antibody Screen NEG 08/26/2021 9:41 AM SHOVEL LOADER OPERATOR [facility] Blood Bank BLOOD SPECIMEN / Unknown Venipuncture / Unknown 08/26/2021 9:04 AM SHOVEL LOADER OPERATOR 08/26/2021 9:09 AM SHOVEL LOADER OPERATOR Abhishek Elizabeth MD LAB - BLOOD BANK O RDERALEONIE Performing Organization Address City/[facility] Co de Phone Number [facility] [address] [place] [id number] [place] [address] * (ABNORMAL) CBC W AUTO DIFFERENTIAL (08/26/2021 9:04 AM [facility]) Only the most recent of3 resultswithin the time period is included. WBC 7.2 4.4 - 10.7 x10E9/L 08/26/2021 9:31 AM [facility] WBC Corrected 08/26/2021 9:31 AM [facility] RBC 4.52 3.80 - 5.20 x10E12/L 08/26/2021 9:31 AM [facility] Hemoglobin 12.1 12.0 - 15.6 gm/dL 08/26/2021 9:31 AM [facility] Hematocrit 38.1 35.9 - 45.5 % 08/26/2021 9:31 AM [facility] MCV 84.3 80.7 - 98.3 fl 08/26/2021 9:31 AM [facility] MCH 26.8 26.7 - 34.0 pg 08/26/2021 9:31 AM [facility] MCHC 31.8 30.8 - 35.9 gm/dL 08/26/2021 9:31 AM [facility] Platelet Count 277 153 - 416 x10E9/L 08/26/2021 9:31 AM [facility] RDW-CV 15.4(H) 12.1 - 14.9 % 08/26/2021 9:31 AM [facility] MPV 9.7 9.4 - 12.9 fl 08/26/2021 9:31 AM [facility] Neutrophils % 73.1(H) 44.0 - 73.0 % 08/26/2021 9:31 AM [facility] Lymphocytes % 20.4 20.0 - 43.0 % 08/26/2021 9:31 AM [facility] Monocytes % 4.6(L) 5.0 - 13.0 % 08/26/2021 9:31 AM [facility] Eosinophils % 1.2 0.0 - 6.0 % 08/26/2021 9:31 AM [facility] Basophils % 0.4 0.0 - 2.0 % 08/26/2021 9:31 AM [facility] Immature Granulocytes 0.3 0 - 1 % 08/26/2021 9:31 AM [facility] Neutrophil Absolute 5.27 2.01 - 7.14 x10E9/L 08/26/2021 9:31 AM [facility] Lymphocytes Absolute 1.47 1.07 - 3.94 x10E9/L 08/26/2021 9:31 AM [facility] Monocytes Absolute 0.33 0.26 - 1.07 x10E9/L 08/26/2021 9:31 AM [facility] Eosinophils Absolute 0.09 0 - 0.47 x10E9/L 08/26/2021 9:31 AM [facility] Basophils Absolute 0.03 0 - 0.08 x10E9/L 08/26/2021 9:31 AM [facility] Immature Granulocytes Absolute 0.02 0.00 - 0.06 x10E9/L 08/26/2021 9:31 AM [facility] nRBC Auto 0 /100 WBC 08/26/2021 9:31 AM [facility] Blood BLOOD SPECIMEN / Unknown Venipuncture / Unknown 08/26/2021 9:04 AM SHOVEL LOADER OPERATOR 08/26/2021 9:08 AM [facility] Abhishek Elizabeth MD LAB - HEMATOLOGY O RDERABLES Performing Organization Address City/State/[facility] Co de Phone Number [facility] [address] [place] [id number] * BASIC METABOLIC PANEL (CALCIUM TOTAL) (08/26/2021 9:04 AM [facility]) [facility] Glucose 93 70 - 105 mg/dL 08/26/2021 9:55 AM [facility] Sodium 138 136 - 145 mmol/L 08/26/2021 9:55 AM [facility] Potassium 3.8 3.5 - 5.1 mmol/L 08/26/2021 9:55 AM [facility] Chloride 106 98 - 107 mmol/L 08/26/2021 9:55 AM [facility] CO2 23 23 - 31 mmol/L 08/26/2021 9:55 AM [facility] Calcium 9.1 8.4 - 10.4 mg/dL 08/26/2021 9:55 AM [facility] Anion Gap 9 8 - 18 mmol/L 08/26/2021 9:55 AM SHOVEL LOADER OPERATOR [facility] BUN 18 7 - 18.7 mg/dL 08/26/2021 9:55 AM SHOVEL LOADER OPERATOR [facility] Creatinine 0.77 0.57 - 1.11 mg/dL 08/26/2021 9:55 AM SHOVEL LOADER OPERATOR [facility] eGFR by CKD-EPI >90 >=90 mL/min/1.7 3 m2 08/26/2021 9:55 AM SHOVEL LOADER OPERATOR [facility] Blood BLOOD SPECIMEN / Unknown Venipuncture / Unknown 08/26/2021 9:04 AM SHOVEL LOADER OPERATOR 08/26/2021 9:08 AM SHOVEL LOADER OPERATOR Narrative [facility] - 08/26/2021 9:55 AM SHOVEL LOADER OPERATOR eGFR result was calculated using the updated CKD-EPI Creatinine Equations (2020). Prior to go live 2021 the eGFR was calculated using the MDRD calculation. Please note Reference Range change. Abhishek Elizabeth MD LAB - CHEMISTRY OR DERABLES Performing Organization Address City/[facility]/ZIP Co de Phone Number [facility] [address] [place], [place] [id number] * HCG URINE QUALITATIVE - POCT (IP) INTERFACED (08/26/2021 8:51 AM SHOVEL LOADER OPERATOR) HCG Qual Urine Negative Negative 08/26/2021 8:56 AM SHOVEL LOADER OPERATOR [facility] Urine URINE / Unknown 08/26/2021 8 :51 AM SHOVEL LOADER OPERATOR 08/26/2021 8:56 AM SHOVEL LOADER OPERATOR Abhishek Elizabeth MD LAB - POINT OF CAR E ORDERABLES [facility] [address] [place] [address] * SD SONO EXAM, TRANSVAGINAL (08/13/2021 9:11 AM SHOVEL LOADER OPERATOR) Narrative Joceline Castaneda - 08/13/2021 9:11 AM SHOVEL LOADER OPERATOR Joceline Castaneda 08/13/2021 9:11 AM Documentation in digisonics Abhishek Elizabeth MD PROCEDURE/MINOR BREWER RGICAL ORDERABLES * IMAGING RADIOLOGY XRAY RESULTS ORDER (08/13/2021) Anatomical Region Laterality Modality Other Narrative 08/13/2021 Ordered by an unspecified provider. Scanned Document IMAGING * PATHOLOGY TISSUE (05/14/2021 4:09 PM SHOVEL LOADER OPERATOR) Case Report Surgical Pathology Report Case: [id number] Authorizing Provider: Tom Quiroz Jr., MD Collected: 05/14/2021 04:09 PM Ordering Location: [facility] Obstetrics Received: 05/17/2021 12:33 PM Gynecology [facility] Women's [facility] Pathologist: Marcos Bhat MD Specimen: Endometrium, EMB 05/18/2021 11:10 AM [facility] Final Diagnosis Endometrium, biopsy: - Benign weakly proliferative endometrium 05/18/2021 11:10 AM [facility] Microscopic Description and Comment Microscopic examination substantiates the final diagnosis. 05/18/2021 11:10 AM [facility] Clinical History The patient is a 45 year old female with abnormal uterine bleeding 05/18/2021 11:10 AM [facility] Gross Description The requisition and specimen(s) are identified with the patient's name, Cadence Ackerman. Received in formalin, specimen A, EMB is an aggregate of brown-agudelo soft tissue and blood clot, 4 x 2.5 x 0.3 cm. Entirely submitted in cassette A1-A2. LJ 05/18/2021 11:10 AM [facility] Disclaimer The performance characteristics of all immunohistochemical and indirect immunofluorescence stains (if any) cited in this report were determined by the [facility] of [facility]. Some of these tests were developed by our own laboratory and have not been cleared or approved by the US Food and Drug Administration. The FDA does not require this test to go through premarket FDA review. These tests are used for clinical purposes. They should not be regarded as investigational or for research. This laboratory is certified under the Clinical Laboratory Improvement Amendments (CLIA) as qualified to perform high complexity clinical laboratory testing. This case has been personally reviewed and interpreted by the attending (teaching) pathologist. 05/18/2021 11:10 AM [facility] Embedded Images 05/18/2021 11:10 AM [facility] Pathology/Cytolo gy ENTIRE ENDOMETRIUM / Unknown 05/14/2021 4:09 PM SHOVEL LOADER OPERATOR 05/17/2021 12:33 PM SHOVEL LOADER OPERATOR Tom Quiroz Jr., MD LAB - PATHOLOGY/ CYTOLOGY ORDERABLES [facility] [address] [phone] * (ABNORMAL) HCG URINE QUALITATIVE - POINT OF CARE (AMB) (05/14/2021) HCG Qual Urine Negative Negative QC Verified No(A) Yes Urine URINE / Unknown 05/14/2021 Tom Quiroz Jr., MD LAB - POINT OF ARE ORDERABLES * HCG URINE QUALITATIVE - POINT OF CARE (IP) (02/25/2015 10:58 AM CDT) HCG Qual Urine Negative Negative [facility] POCT TESTING QC Verified Yes Yes [facility] POC T TESTING Urine specimen (specimen) URINE / Unknown 02/25/2015 10:58 AM CDT Tom Quiroz Jr., MD LAB - POINT OF ARE ORDERABLES Performing Organization Address City/[facility]/ZIP Co de Phone Number [facility] POCT TESTING [address] [phone] * PATHOLOGY/GENETICS HISTORICAL-ONBASE (02/25/2015) 02/25/2015 Narrative [facility] - 03/03/2015 10:23 AM CDT Historical Provider LAB - CHEMISTRY O RDERABLES [facility] [address] * BLOOD TYPE VERIFICATION (02/24/2015 12:21 PM CDT) ABO AB 02/24/2015 1:31 PM CDT [facility] Rh Type Negative 02/24/2015 1:31 PM CDT [facility] Miscellaneous samples (specimen) BLOOD SPECIMEN / Unknown Venipuncture / Unknown 02/24/2015 12:21 PM CDT 02/24/2015 12:21 PM CDT Tom Quiroz Jr., MD LAB - BLOOD BANK ORDERABLES Performing Organization Address City/[facility] Co de Phone Number [facility] [address] * LAB HISTORICAL RESULTS-ONBASE (02/24/2015) 02/24/[address] [facility] - 02/25/2015 8:21 AM CDT Historical Provider LAB - CHEMISTRY O RDERABLES Performing Organization Address City/[facility]/ZIP Co de Phone Number [place] [phone] [address] Care Teams Irradiated Fuel Handler Relationship Specialty Start Date End Date Nestor Mckinley MD [facility] [place] [address] PCP - General Family Medicine 02/23/15
--- OUTSIDE RECORDS SUMMARY | 2024-08-05 09:12 | XMS_ITS | Encounter Summary ---
Author Organization [facility] Address [address] [place] [address] Phone Care Team Providers Care Supervisor Hospitality House Name Role Phone Nestor Mckinley MD Primary Care Provider [phone] Bernarda Nicholson MD Unavailable [phone] Abdirahman Ram MD Unavailable [phone] No, Physician Primary Care Provider [phone] Nestor Mckinley MD Primary Care Provider [phone] Abhishek Elizabeth MD Unavailable [phone] Todd Gomez MD Primary Care Provider [phone] Encounter Details Date Type Department Care Team (Late st Contact Info) Description 10/27/2017 Orders Only [facility] ProviderKassandra MD [address] [place] [id number] Social History Tobacco Use Types Packs/Day Years Used Date Smoking Tobacco: Never Smokeless Tobacco: Never Alcohol Use Standard Drinks/Week Comments No 0 (1 standard drink = 0.6 oz pur e alcohol) Comments Yes Sex and Gender Information Value Date Recorded Sex Assigned at Not on file Legal Sex Female 10:37 AM CHARGE ENTRY CLERK Gender Identity Not on file Sexual Orientation Not on file documented as of this encounter Plan of Treatment Not on file documented as of this encounter Procedures Procedure Name Priority Date/Time Associated Diagnosis Comments DISCHARGE LABORATORY CUMULATIVE REPORT 10/27/2017 12:00 AM CDT documented in this encounter Results * DISCHARGE LABORATORY CUMULATIVE REPORT (10/27/2017 12:00 AM CDT) Narrative 10/27/2017 12:00 AM CDT Ordered by an unspecified provider. us Historical Provider LAB BLOOD ORDERABLES Kalina l Result documented in this encounter Visit Diagnoses Not on filedocumented in this encounter Care Teams Supervisor Hospitality [facility] Relationship Specialty Start Date End Date Nestor Mckinley MD [address] [place] [address] PCP - General 07/12/17 02/19/19 No, Physician PCP - General 02/20/19 04/05/19 Nestor Mckinley MD [address] [place] [address] PCP - General 04/06/19 11/11/21 Todd Gomez MD [address] [place] [address] PCP - General Family Medicine 11/12/21 Bernarda Nicholson MD [address] [place] [address] Solid Waste Management Engineer Obstetrics and Gynecology 09/06/17 Abdirahman Ram MD [address] [place] [address] Consulting Physician Obstetrics and Gynecology 10/01/18 Abhishek Elizabeth MD [address] [place] [address] Obstetrics and Gynecology 11/11/21 documented as of this encounter
--- OUTSIDE RECORDS SUMMARY | 2024-08-05 09:13 | XMS_ITS | Encounter Summary ---
Author Organization [facility] Address [address] [place] [address] Phone Care Team Providers Care Scrap Kettle Tender Name Role Phone Nestor Mckinley MD Primary Care Provider Bernarda Nicholson MD Unavailable [phone] Abdirahman Ram MD Unavailable [phone] No, Physician Primary Care Provider [phone] Nestor Mckinley MD Primary Care Provider [phone] Abhishek Elizabeth MD Unavailable [phone] Todd Gomez MD Primary Care Provider Encounter Details Date Type Department Care Team (Latest Contact Info) Description 07/13/2017 Orders Only [facility] CONVERSION Scanning, Provider Social History Tobacco Use Types Packs/Day Years Used Date Smoking Tobacco: Never Assessed Comments Unknown Sex and Gender Information Value Date Recorded Sex Assigned at Not on file Legal Sex Female 10:37 AM LINE STAKER Gender Identity Not on file Sexual Orientation Not on file documented as of this encounter Plan of Treatment Not on file documented as of this encounter Procedures Procedure Name Priority Date/Time Associated Diagnosis Comments OBSTETRIC/GYNECOLOGY ULTRASONOGRAPHY REPORT 07/13/2017 8:39 PM LINE STAKER documented in this encounter Results * OBSTETRIC/GYNECOLOGY ULTRASONOGRAPHY REPORT (07/13/2017 8:39 PM LINE STAKER) Anatomical Region Laterality Modality Ultrasound us Provider Scanning IMG OB US PROCEDURES Final Res ult documented in this encounter Visit Diagnoses Not on filedocumented in this encounter Care Teams Scrap Kettle Tender Relationship Specialty Start Date End Date Nestor Mckinley MD [address] [place] [address] PCP - General 07/12/17 02/19/19 No, Physician PCP - General 02/20/19 04/05/19 Nestor Mckinley MD [address] [place] [address] PCP - General 04/06/19 11/11/21 Todd Gomez MD [address] [place] [address] PCP - General Family Medicine 11/12/21 Bernarda Nicholson MD [address] [place] [address] Roll Builder Obstetrics and Gynecology 09/06/17 Abdirahman Ram MD [address] [place] [address] Consulting Physician Obstetrics and Gynecology 10/01/18 Abhishek Elizabeth MD [address] [place] [address] Obstetrics and Gynecology 11/11/21 documented as of this encounter
--- OUTSIDE RECORDS SUMMARY | 2024-08-05 09:13 | XMS_ITS | Referral Summary ---
Author Organization [facility] Address [address] [place] [address] Care Team Providers Care Echometer Engineer Name Role Phone Bernarda Nicholson MD Unavailable Abdirahman Ram MD Unavailable Abhishek Elizabeth MD Unavailable [phone] Todd Gomez MD Primary Care Provider Encounters Date Type Department Care Team Description 07/25/2024 Nurse Triage [facility] at [address] [address] Todd Gomez MD 05/08/2024 7:00 AM COMPUTER SYSTEMS SOFTWARE ENGINEER Office Visit [facility] at [address] [address] Sosa Miller NP Acute non-recurrent frontal sinusitis (Primary Dx) 05/07/2024 Nurse Triage [facility] at [address] [address] Adina Neves RN from Last 3 Months Allergies Active Allergy Reactions Criticality Noted Date Comments Gluten Diarrhea,Stomach upset,Urticaria Medium 09/2021 Mold Sneezing Low 07/20/2021 Medications omega 1-aqm-gji-fish oil 100-160-1,000 mg capsule 6 Active multivitamin capsule Take 1 capsule by mouth daily Active montelukast (SINGULAIR) 10 mg tablet Take 1 tablet (10 mg total) by mouth nightly 90 tablet 3 4 Active rizatriptan (MAXALT) 10 mg tabletIndicatio ns:Migraine Take 1 tablet (10 mg total) by mouth once as needed for migraine May repeat in 2 hours if unresolved. Do not exceed 30 mg in 24 hours. 9 tablet 1 4 Active estradioL (VIVELLE-DOT) 0.1 mg/24 hr APPLY 1 PATCH TWICE WEEKLY. ALTERNATING 3 DAYS FOR 1 PATCH THEN 4 DAYS FOR OTHER PATCH 4 Active Active Problems Problem Noted Date Diagnosed Date Migraine without aura and wi thout status migrainosus, not intractable 03/06/2024 Assessment & Plan (03/06/2024 9:34 AM CDT): Has migraines rarely intermittently. Chronic, stable, continue Maxalt p.r.n. Seasonal allergic rhinitis due to pollen 024 Assessment & Plan (03/06/2024 9:34 AM CDT): Seasonal, chronic, continue Singulair 10 mg once daily ENMA (generalized anxiety disorder) 12/28/2022 Well adult exam 07/19/2022 Assessment & Plan (03/06/2024 9:33 AM CDT): -Recommended: Healthy diet. Avoiding junk food/fast food. -30 minutes of exercise most days of the week. Increase to 45 minutes for weight loss. Immunizations: Recommended influenza vaccine, we are giving in March call if any problems Follow-up in 1 year. Assessment & Plan (07/19/2022 8:54 AM COMPUTER SYSTEMS SOFTWARE ENGINEER): A(n) yearly well adult visit has been performed today. Cadence Tim is not up to date on screening tests. She is in need of Breast cancer screening, Colon cancer screening and Cervical cancer screening. She is up to date on needed preventative vaccinations. Medications reviewed, changes documented as per the medical record and discussed with patient along with risks vs benefits. PMS (premenstrual syndrome) 05/02/2022 Overview (05/02/2022): 04/2022: Labs WNL. Pt on lexapro per PCP. Recommend adding exercise and increase in dose. Will call if needed. Assessment & Plan (05/02/2022 9:42 AM COMPUTER SYSTEMS SOFTWARE ENGINEER): Check labs-call pt with results. Discussed STREET ROLLER ENGINEER vs perimenopause. Discussed importance of exercise, diet/hydration and plenty of protein intake during times of month when she is feeling more irritable. Discussed possible increase in Lexapro dose vs. Switch to Prozac. Advised would not Rx hormones for PMS since she has had TLH. Pt aware if thyroid labs or HgbA1C abnormal, will refer to PCP for management. RTC for WWE/call PRN. Resolved Problems Problem Noted Date Diagnosed Date Resolved Date Menorrhagia with regular cycle 04/25/2022 05/02/2022 Overview (04/25/2022): 2020-US normal - trial Lysteda Abdominal cramping 07/21/2021 Assessment & Plan (07/21/2021 9:21 PM COMPUTER SYSTEMS SOFTWARE ENGINEER): Lab. Keep track of cramping and grade of pain. Note if there is associated with menieses ot with something else. Watch for anything cramping that doesn't stop and seek medical help. Fatigue associated with anemia 07/20/2021 03/06/2024 Assessment & Plan (07/21/2021 9:12 PM COMPUTER SYSTEMS SOFTWARE ENGINEER): Lab today. Continue with eating a balanced diet. Push fluid Continue monitoring menses for increased breathing. Talked about clarence bleeding and making sure that she is seeking help and not waiting for it to lessens. Anemia due to blood loss 07/20/202104/2024 Assessment & Plan (07/20/2021 11:00 PM COMPUTER SYSTEMS SOFTWARE ENGINEER): Lab work CBC, CMP,Iron panel, UA, Cholesterol,Vit D Drink adequate fluids. NO ice tea> Can eat lean red meat. Foods with iron. Cook in iron skillet. Watch bleeding, is goes to a [place] bleeding with or without large clots seek Medical help. Situational anxiety 07/20/2021 03/06/20 24 Assessment & Plan (11/28/2022 8:59 AM CDT): Anxiety not at goal Increase Wellbutrin xl to 300 mg daily F/u 4 weeks Assessment & Plan (07/20/2021 11:12 PM COMPUTER SYSTEMS SOFTWARE ENGINEER): States is dealing well with anxiety. States is doing better because she is getting more rest. Her children are back in school. Lbncps-cm-ogu is healthier. Eating better. Will get lab work done . Endometriosis of other specified sites 01/01/2019 03/06/2024 Rh negative state in antepartum period 12/04/2018 03/26/2022 Assessment & Plan (01/01/2019 1:39 PM CDT): Rhogam candidate Assessment & Plan (12/04/2018 12:37 PM CDT): Rhogam candidate Supervision of high-risk pre gnancy, second trimester 10/29/2018 03/26/2022 Assessment & Plan (01/01/2019 1:42 PM CDT): SIUP at 23+4 weeks gestation in tv presentation with an EFW of 648g (60%), JAVIER normal CL 54mm RTN to Dr Nicholson in 2 weeks (gct) RTN to the practice in 4 weeks with repeat growth and cl. Will need rhogam at this visit Assessment & Plan (12/04/2018 12:35 PM CDT): SIUP at 19 weeks and 4 weeks gestation in vertex presentation with an EFW of 315g (59%) Normal JAVIER, anterior placenta Anatomy performed today with no structural malformations CL 67mm with cerclage seen in place CL in 2 weeks/appt with Dr. Nicholson RTN to Practice in 4 weeks with growth/CL Assessment & Plan (10/29/2018 2:32 PM CDT): SIUP at 14+3 weeks gestation EFW 129g (>95%) Variable presentation, normal JAVIER, anterior placenta Cl 69mm Follow up with Dr. Nicholson's office in 2 weeks with a cervical length ultrasound Follow up at the Perinatology office in 4 weeks for an appt and her anatomy scan. Antepartum multigravida of a dvanced maternal age 0410/02/2018 03/26/2022 Assessment & Plan (01/01/2019 1:40 PM CDT): IVF with donor eggs (30 Years old) Anatomy complete with no structural malformations noted Assessment & Plan (12/04/2018 12:37 PM CDT): Donor eggs (30 y/o) used for conception Assessment & Plan (10/29/2018 2:29 PM CDT): Anatomy pending Cervical incompetence affect ing , antepartum 10/02/2018 03/26/2022 Overview (10/02/2018): Added automatically from request for surgery [id number] Assessment & Plan (01/01/2019 1:38 PM CDT): Cervical cerclage in place Assessment & Plan (12/04/2018 12:36 PM CDT): Cerclage in place CL 67mm Assessment & Plan (10/29/2018 2:13 PM CDT): Cervical cerclage seen in place CL 69mm Continue vaginal prometrium at 200mg daily Cervical length with Dr. Nicholson's office in 2 weeks resulting from ass isted reproductive technology, antepartum 10/01/201806/2021 Assessment & Plan (01/01/2019 1:36 PM CDT): Pt declines echo Assessment & Plan (12/04/2018 12:34 PM CDT): Reviewed recommendations for echocardiogram Pt plans to speak with Dr. Nicholson and will call the office to schedule between 22-26 weeks gestation if desires Assessment & Plan (10/29/2018 2:13 PM CDT): IVF with donor eggs (30 years old) echo between 22-26 weeks gestation History of 10/01/2018 022 Assessment & Plan (01/01/2019 1:40 PM CDT): Plans repeat on 04/15/[address] Lyn Ram to remove cerclage post procedure Subchorionic hemorrhage in first trimester 10/01/2018 10/29/2018 Cervical incompetence affect ing management of mother, antepartum 08/02/2017 10/29/2018 Advanced maternal age, primi , antepartum 08/02/2017 10/02/2018 History of loop electrosurgi aliyah excision procedure (LEEP) of cervix affecting , antepartum 08/02/2017 03/26/2022 Assessment & Plan (01/01/2019 1:38 PM CDT): Cerclage in place CL 54mm Reassess in [address] Nicholson Reassess in 4 weeks and an appt here at the Practice Failure to progress in labor 01/01/2019 Immunizations Name Administration Dates Next Due Influenza, Quadrivalent, Spl it, Preservative Free, Intramuscular 04/05/2023,04/20/2022,04/03/2019,03/20,03/19/2018,03/27/2017 Influenza, Trivalent, IM (MDV) 03/19/2014,2012,04/23/2012 Influenza, Trivalent, Preser vative Free, Intramuscular 04/20/2015 Influenza, Unspecified 03/28/2024,2023(Deferred: Patient Refused),06/26/2023(Deferred: Patient Refused),06/26/2022(Deferred: Patient Refused),06/26/2021(Deferred: Patient Refused),04/19/2021,04/09/2020(Deferre d: Patient Refused) Rho (D) Immune Globulin 08/04/2017 Tdap 02/11/2019,10/03/2017,10/02/2017 Social History Tobacco Use Types Packs/Day Years Used Date Smoking Tobacco: Never Passive Smoke Exposure: Never Smokeless Tobacco: Never Tobacco Cessation:Counseling Given: Not Answered Alcohol Use Standard Drinks/Week Comments Not Currently [...] staff should administer the PHQ-9) 0 03/06/2024 Thornton Depression Scale Answer Date Recorded Thornton Depression Scale Total 3 04/15/2019 The thought of harming myself has occurred to me . Never 04/15/2019 Comments No Sex and Gender Information Value Date Recorded Sex Assigned at Not on file Legal Sex Female 10:37 AM COMPUTER SYSTEMS SOFTWARE ENGINEER Gender Identity Not on file Sexual Orientation Not on file Last Filed Vital Signs Vital Sign Reading Time Taken Comments Blood Pressure 124/78 05/08/2024 7:14 AM COMPUTER SYSTEMS SOFTWARE ENGINEER Pulse 89 05/08/2024 7:14 AM COMPUTER SYSTEMS SOFTWARE ENGINEER Temperature 36.7 C (98 F) 05/08/2024 7:14 AM COMPUTER SYSTEMS SOFTWARE ENGINEER Respiratory Rate 16 05/08/2024 7:14 AM COMPUTER SYSTEMS SOFTWARE ENGINEER Oxygen Saturation 96% 05/08/2024 7:14 AM COMPUTER SYSTEMS SOFTWARE ENGINEER Inhaled Oxygen Concentration - - Weight 67.8 kg (149 lb 6.4 oz) 05/08/2024 7:14 A M COMPUTER SYSTEMS SOFTWARE ENGINEER Height 160 cm (5' 3 ) 05/08/2024 7:14 AM COMPUTER SYSTEMS SOFTWARE ENGINEER Body Mass Index 26.47 05/08/2024 7:14 AM COMPUTER SYSTEMS SOFTWARE ENGINEER Plan of Treatment Not on file Procedures Procedure Name Priority Date/Time Associated Diagnosis Comments HM MAMMOGRAPHY Routine 06/28/2023 HM COLONOSCOPY Routine 04/11/2023 HEPATITIS C ANTIBODY Routine 09/14/2018 9:39 AM CDT from Last 3 Months or Most Recently Relevant to Health Maintenance Results * HM MAMMOGRAPHY (06/28/2023) Historical Provider HEALTH MAINTENANCE Final Result * COLONOSCOPY (04/11/2023) Historical Provider HEALTH MAINTENANCE Final Result * Hepatitis C antibody (09/14/2018 9:39 AM CDT) Hep C Ab Non-Reactiv e Non-Reactiv e [facility] Blood specimen (specimen) 09/14/2018 9:39 AM CDT 09/14/2018 12:15 PM CDT Narrative [facility] - 09/14/2018 12:59 PM CDT Notinfile Unknown LAB MICROBIOLOGY - GENERAL ORD ERABLES Final Result [facility] [address] Department [place] [address] from Last 3 Months or Most Recently Relevant to Health Maintenance Insurance [employer] ANTHEM PREFERRED BLUE ACCESS OOS Advance Directives For more information, please contact: [phone] * Full Code (Latest Code Status on File) Date Activated Date Inactivated Comments 04/12/2019 7:25 PM 04/15/2019 9:26 PM * Full Code Date Activated Date Inactivated Comments 04/12/2019 1:26 PM 04/12/2019 7:25 PM Full CPR i n case of cardiopulmonary arrest * Full Code Date Activated Date Inactivated Comments 10/18/2018 11:32 AM 10/19/2018 4:55 PM * Full Code Date Activated Date Inactivated Comments 11/18/2017 7:56 PM 11/22/2017 1:38 PM * Full Code Date Activated Date Inactivated Comments 11/16/2017 10:29 PM 11/18/2017 7:55 PM Full CPR i n case of cardiopulmonary arrest Care Teams Echometer Engineer Relationship Specialty Start Date End Date Todd Gomez MD [address] [place] [address] PCP - General Family Medicine 11/12/21 Bernarda Nicholson MD Roll Cleaner Obstetrics and Gynecology 09/06/17 Abdirahman Ram MD Consulting Physician Obstetrics and Gynecology 10/01/18 Abhishek Elizabeth MD [address] [place] [address] Obstetrics and Gynecology 11/11/21
--- OUTSIDE RECORDS SUMMARY | 2024-08-05 09:13 | XMS_ITS | Clinical Summary ---
Author Organization [facility] Building C Address [address] [place] [address] Care Team Providers Care Percussion Tuner Name Role Phone Bernarda Nicholson MD Unavailable [phone] Abdirahman Ram MD Unavailable Kwaku-Abhishek Cai MD Unavailable [phone] Todd Gomez MD Primary Care Provider Allergies Active Allergy Reactions Criticality Noted Date Comments Gluten Diarrhea,Stomach upset,Urticaria Medium 09/2021 Mold Sneezing Low 07/20/2021 Medications omega 2-kjp-hkm-fish oil 100-160-1,000 mg capsule 6 Active multivitamin [...] year. Assessment & Plan (07/19/2022 8:54 AM ADULT CARE PROVIDER): A(n) yearly well adult visit has been [...] needed. Assessment & Plan (05/02/2022 9:42 AM ADULT CARE PROVIDER): Check labs-call pt with results. Discussed COMMUNITY RELATIONS LIAISON vs perimenopause. Discussed importance of exercise, diet/hydration [...] with regular cycle 04/25/2022 05/02/2022 Overview (04/25/2022): US normal - trial Lysteda Abdominal cramping 07/21/2021 Assessment & Plan (07/21/2021 9:21 PM ADULT CARE PROVIDER): Lab. Keep track of cramping and grade of pain. Note if there is associated with menieses ot with something else. Watch for anything cramping that doesn't stop and seek medical help. Fatigue associated with anemia 07/20/2021 03/06/2024 Assessment & Plan (07/21/2021 9:12 PM ADULT CARE PROVIDER): Lab today. Continue with eating a balanced diet. Push fluid Continue monitoring menses for increased breathing. Talked about clarence bleeding and making sure that she is seeking help and not waiting for it to lessens. Anemia due to blood loss 07/20/202104/2024 Assessment & Plan (07/20/2021 11:00 PM ADULT CARE PROVIDER): Lab work CBC, CMP,Iron panel, UA, Cholesterol,Vit [...] weeks Assessment & Plan (07/20/2021 11:12 PM ADULT CARE PROVIDER): is dealing well with anxiety. States is doing better because she is getting more rest. Her children are back in school. [id number] is healthier. Eating better. Will get lab [...] (10/02/2018): Added automatically from request for surgery [id number] Assessment & Plan (01/01/2019 1:38 PM CDT): [...] Practice Failure to progress in labor 01/01/2019 Encounters Date Type Department Care Team Description 07/25/2024 Nurse Triage [facility] at [address] [address] Todd Gomez MD 05/08/2024 7:00 AM ADULT CARE PROVIDER Office Visit [facility] [address] [address] Sosa Miller NP Acute non-recurrent frontal sinusitis (Primary Dx) 05/07/2024 Nurse Triage [facility] at [address] [address] Adina Neves RN from Last 3 Months Immunizations Name Administration Dates Next Due Influenza, Quadrivalent, Spl it, Preservative Free, Intramuscular 04/05/2023,04/20/2022,04/03/2019,03/20,03/19/2018,03/27/2017 Influenza, Trivalent, IM (MDV) 03/19/2014,2012,04/23/2012 Influenza, Trivalent, Preser vative Free, Intramuscular 04/20/2015 Influenza, Unspecified 03/28/2024,2023(Deferred: Patient Refused),06/26/2023(Deferred: Patient Refused),06/26/2022(Deferred: Patient Refused),06/26/2021(Deferred: Patient Refused),04/19/2021,04/09/2020(Deferre d: Patient Refused) Rho (D) Immune Globulin 08/04/2017 Tdap 02/11/2019,10/03/2017,10/02/2017 Surgical History Surgery Date Site/Laterality Comments CERVICAL BIOPSY W/ LOOP ELECTRODE EXCISION EXPLORATORY LAPAROTOMY 2015 APPENDECTOMY 2002 SECTION LTCS X 2 LAPAROSCOPIC TOTAL HYSTERECTOMY 08/26/2021 B/L Salpingectomy - Ovarian Conservation Medical History Medical History Date Comments Endometriosis Migraine Female infertility Rh incompatibility Fatigue associated with anemia 07/20/2021 Cervical dysplasia LEEP 2004 Cystic fibrosis gene carrier Menorrhagia with regular cycle 2 020-US normal - trial Lysteda Family History Medical History Relation Name Comments Depression Father Hypertension Father Arthritis Maternal Grandfather Cancer Maternal Grandfather Depression Maternal Grandfather Arthritis Maternal Grandmother COPD Maternal Grandmother Depression Maternal Grandmother Stroke Maternal Grandmother Arthritis Paternal Grandfather Cancer Paternal Grandfather Arthritis Paternal Grandmother Heart disease Paternal Grandmother Blood Clot Sister Cystic fibrosis Sister Depression Sister Diabetes Neg Hx Relation Name Status Comments Father Father's Sister Alive Maternal Grandfather Maternal Grandmother Paternal Grandfather Paternal Grandmother Sister Social History Tobacco Use Types Packs/Day Years [...] staff should administer the PHQ-9) 0 03/06/2024 Henrietta Depression Scale Answer Date Recorded Henrietta Depression Scale Total 3 04/15/2019 The thought of harming myself has occurred to me . Never 04/15/2019 Comments No Sex and Gender Information Value Date Recorded Sex Assigned at Not on file Legal Sex Female 10:37 AM ADULT CARE PROVIDER Gender Identity Not on file Sexual Orientation Not on file Obstetrics History Para Term AB IAB SAB Ectopic Multiple Livin g Live Births 2 2 2 0 2 2 Date Outcome GA Total Labor Labor/2nd/3rd Weight Sex Type Anes PTL Gladys A1 A5 Name Clin 2017 Term 38w 4d 0h 01m 0h 01m 3.08 kg (6 lb 12.6 oz) F CS-LT ranv Epidur al Y Livin g 8 9 RONAT ,GIRL Bernarda Mercado MD Complications: Intolera nce Delivery Location:[facility] Fac[facility] ([facility]) 2018 Term 38w 0d 0h 02m 0h 02m 2.885 kg (6 lb 5.8 oz) F CS-LT ranv Spinal N Livin g 8 9 RONAT ,GIRL Bernarda Mercado MD Complications:None Delivery Location:This Facil ity ([facility] PROCEDURE) Comments:small red bir thmark inner left thigh Comments Cerclage Placed at 23 weeks Last Filed Vital Signs Vital Sign Reading Time Taken Comments Blood Pressure 124/78 05/08/2024 7:14 AM ADULT CARE PROVIDER Pulse 89 05/08/2024 7:14 AM ADULT CARE PROVIDER Temperature 36.7 C (98 F) 05/08/2024 7:14 AM ADULT CARE PROVIDER Respiratory Rate 16 05/08/2024 7:14 AM ADULT CARE PROVIDER Oxygen Saturation 96% 05/08/2024 7:14 AM ADULT CARE PROVIDER Inhaled Oxygen Concentration - - Weight 67.8 kg (149 lb 6.4 oz) 05/08/2024 7:14 A M ADULT CARE PROVIDER Height 160 cm (5' 3 ) 05/08/2024 7:14 AM ADULT CARE PROVIDER Body Mass Index 26.47 05/08/2024 7:14 AM ADULT CARE PROVIDER Plan of Treatment Health Maintenance Due Date Last Done Comments Hepatitis B Screening 1994 Breast Cancer Screening-Mammogram 06/28/2024 06/28/2023 Depression Screening 03/06/2025 03/06/2024, 04/05/2023, 12/28/2022, Additional history exists Regular Well Visit/Exam 18-03/06/2025 03/06/2024, 07/19/2022 DTaP/Tdap/Td Vaccine (4 - Td or Tdap) 02/11/2029 02/11/2019, 10/03/2017, 10/02/2017 Colon Cancer Screening-Colonoscopy 04/11/2033 04/11/2023 Hepatitis C Screening Completed 09/14/2018, 017 Influenza Vaccine Completed 03/28/2024, , 04/20/2022, Additional history exists Pneumococcal vaccine <65 Aged Out No longer eligible based on patient's age to complete this topic Procedures Procedure Name Priority Date/Time Associated Diagnosis Comments MAMMOGRAPHY Routine 06/28/2023 HM COLONOSCOPY Routine 04/11/2023 HEPATITIS C ANTIBODY Routine 09/14/2018 9:39 AM CDT from Last 3 Months or Most Recently Relevant to Health Maintenance Results * MAMMOGRAPHY (06/28/2023) Historical Provider MD HEALTH MAINTENANCE Final Result * COLONOSCOPY (04/11/2023) Historical Provider MD HEALTH MAINTENANCE Final Result * Hepatitis C antibody (09/14/2018 9:39 AM CDT) Hep C Ab Non-Reactiv e Non-Reactiv e [facility] Blood specimen (specimen) 09/14/2018 9:39 AM CDT 09/14/2018 12:15 PM CDT Narrative [facility] - 09/14/2018 12:59 PM CDT Notinfile Unknown LAB MICROBIOLOGY - GENERAL ORD ERABLES Final Result [facility] [address] Department [place] [address] from Last 3 Months or Most Recently Relevant to Health Maintenance Insurance BLUE ACCESS OOS ANTH PREFERRED BLUE ACCESS OOS Advance Directives For more information, please contact: [phone] * Full Code (Latest Code Status on [...] 10:29 PM 11/18/2017 7:55 PM Full CPR in case of cardiopulmonary arrest Care Teams Percussion Tuner Relationship Specialty Start Date End Date Todd Gomez MD [address] [place] [address] PCP - General Family Medicine 11/12/21 Bernarda Nicholson MD [facility] Obstetrics and Gynecology 09/06/17 Abdirahman Ram MD Consulting Physician Obstetrics and Gynecology 10/01/18 Abhishek Elizabeth MD [address] [place] [address] Obstetrics and Gynecology 11/11/21
--- OUTSIDE RECORDS SUMMARY | 2024-08-05 09:13 | XMS_ITS | Data Portability ---
Author Organization [facility] [place] Address [address] [place] [address] Care Team Providers Care Analysis Manager Name Role Phone RENY JACKSON Primary Care Provider [phone] Assessment No assessment recorded. Plan of Treatment Reminders Order Date Submit Date Provider Last Modified By Organization Details Last Modified Time Details Appointments None recorded. Lab None recorded. Referral None recorded. Procedures None recorded. Surgeries None recorded. Imaging None recorded. Medication Orders estradiol 1 mg tablet 2023 [employer] #[id number], [address] [place], [place], [id number], 4 12:02:04 estradiol 1 mg tablet 2023 024 [employer] [id number], [address], [place], [id number], 09:34:04 Patient TargetsNo targets recorded. Patient InstructionsNo instructions recorded. Reason for Referral None Reported. Procedures Surgical History Date Name Laterality Status Provider Name and Address Organization Details Recorded Time 07/18/19 24 Date of Last Mammogram completed Katy Ramírez [facility] 11/15/2023 11:34:03 04/17/20 23 completed Katy Ramírez [facility] 11/15/2023 11:34:03 LEEP completed Katy Ramírez [facility] 11/15/2023 11:34:23 Endometrial Ablation completed [facility] 11/15/2023 11:34:23 Partial Hysterectomy completed [facility] 11/15/2023 11:34:23 Appendectomy completed [facility] 11/15/2023 11:34:23 Caesarean Section completed [facility] 11/15/2023 11:34:23 Colonoscopy completed [facility] 11/15/2023 11:34:23 Imaging Results None recorded. Procedure Notes None recorded. Medical Equipment None Reported. Allergies Allergen ID Allergen Name Allergen Category Reaction Reaction Severity Criticality Documentation Date Start Date Code Code System Note Provider Name and Address Organization Details Recorded Time 08568 wheat gluten extract food swelling moderate Not available 11/15/2023 20617 81 [facility] 11:33:35 Medications Name Sig Start Date Stop Date Status Note LastModified by Organization Details LastModified Time azithromyci n 250 mg tablet TAKE 2 TABLETS BY MOUTH FOR 1 DAY THEN TAKE 1 TABLET BY MOUTH DAILY FOR 4 DAYS 11/14 completed Not Available Not Available Not Available benzonatate 200 mg capsule TAKE 1 CAPSULE BY MOUTH EVERY 8 HOURS NEEDED FOR COUGH 11/14 completed Not Available Not Available Not Available prednisone 20 mg tablet TAKE 2 TABLETS BY MOUTH EVERY DAY FOR 4 DAYS 11/14 completed Not Available Not Available Not Available hydrocortis one 2.5 % topical cream with perineal applicator INSERT RECTALLY TO THE AFFECTED AREA FOUR TIMES DAILY NEEDED FOR HEMORRHOI DS active Not Available Not Available No t Available estradiol 1 mg tablet TAKE 1 TABLET BY MOUTH EVERY DAY DIRECTED active Not Available Not Available No t Available montelukast 10 mg tablet active Not Available Not Available Not Available albuterol sulfate HFA 90 mcg/actuati on aerosol inhaler INHALE 2 PUFFS BY MOUTH EVERY 4 HOURS NEEDED FOR WHEEZING active Not Available Not Available No t Available bupropion HCl XL 300 mg 24 hr tablet, extended release 11/14 completed Not Available Not Available Not Available bupropion HCl XL 150 mg 24 hr tablet, extended release 11/14 completed Not Available Not Available Not Available Vitals Date Recorded Body height Body mass index (BMI) Body weight Systolic blood pressure Diastolic blood pressure Provider Name and Address Organization Details Last Updated DateTime 11/15/2023 160.02 cm 25.2 kg/m2 48744.84 g 103 mm[Hg] 70 mm[Hg] Katy Ramírez [facility] 4 11:34:46 Date Recorded Body height Body mass index (BMI) Body weight Systolic blood pressure Diastolic blood pressure Provider Name and Address Organization Details Last Updated DateTime 12/05/2023 160.02 cm 25.7 kg/m2 04091.89 g 130 mm[Hg] 83 mm[Hg] Milagro Henrique [facility] 4 09:24:11 Social History Question Answer Notes LastModified by Organizat ion Details LastModified Time What Is Your Level Of Alcohol Consumption? Occasional Information not available 11/15/2023 How Many Years Have You Consumed Alcohol? 25 Information not available 11/15/2023 Are You Blind Or Do You Have Difficulty Seeing? No Information n ot available 11/15/2023 What Is Your Level Of Caffeine Consumption? Moderate Information not available 11/15/2023 How Much Tobacco Do You Chew? None Information not available 11/15/2023 In The 14 Days Before Symptom Onset, Have You Had Close Contact With A Laboratory-confirm ed COVID-19 While That Case Was Ill? No Information n ot available 11/15/2023 In The 14 Days Before Symptom Onset, Have You Had Close Contact With A Person Who Is Under Investigation For COVID-19 While That Person Was Ill? No Information not available 11/15/2023 Have You Been To An Area Known To Be High Risk For COVID-19? No Information not available 11/15/2023 Are You Deaf Or Do You Have Serious Difficulty Hearing? No Information not available 11/15/2023 What Type Of Diet Are You Following? GLUTENFREE Information n ot available 11/15/2023 What Is The Highest Grade Or Level Of School You Have Completed Or The Highest Degree You Have Received? 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 No Information not available 11/15/2023 Do You Use Protection During Sex? No Information not available 11/15/2023 Do You Use Your Seat Belt Or Car Seat Routinely? Yes Information not available 11/15/2023 Do You Have Smoke And Carbon Monoxide Detectors In Your Home? Yes Information not available 11/15/2023 How Much Tobacco Do You Smoke? No Information not available 11/15/2023 Do You Feel Stressed (tense, Restless, Nervous, Or Anxious, Or Unable To Sleep At Night)? [id number] Information not available 11/15/2023 Do You Use Any Illicit Or Recreational Drugs? No Information not available 11/15/2023 Do You Use Sunscreen Routinely? Yes Information not available 11/15/2023 Have You Used IV Drugs? No Information not available 11/15/2023 Sex: Unknown Functional Status Question Answer Note LastModified by Organization D etails LastModified Time Are you able to walk? YESWOREST Information not available 11/15/2023 What is your exercise level? Moderate Information not available 11/15/2023 Mental Status None recorded. Family History Relationship Description Onset Age of this Age Resolved Age Notes LastModified by Organization Details LastModified Time Mother Depressive disorder [email or web address] Not available 2023 11:33:40 Maternal Aunt Disorder of thyroid gland dswayne Not available 2023 11:33:40 Unspecified Relation Disorder of thyroid gland dswayne Not available 2023 11:33:40 Maternal Grandmother Disorder of thyroid gland dswayne Not available 2023 11:33:40 Maternal Grandmother Depressive disorder dswayne Not available 2023 11:33:40 Maternal Grandmother Osteoporosis dswayne Not available 0 11/15/2023 11:33:40 Sister Depressive disorder dswayne Not available 2023 11:33:40 Maternal Grandfather Disorder of thyroid gland dswayne Not available 2023 11:33:40 Maternal Grandfather Depressive disorder dswayne Not available 2023 11:33:40 Medical History Condition Response Allergies (Food, seasonal, environmental ) N Other N Breast Cancer N Drug/Latex Allergies/Reactions N Blood Transfusion N Dermatologic Disorders N Lung Disease N Defects or Inherited Disease N Breast Problem N Gestational Diabetes N Hematologic disorders N Anesthesia Complications N History of STI N Deep Vein Thrombosis N Polycystic ovary syndrome N Anxiety Disorder N Autoimmune disease N Arthritis N Infertility N Polyps N Acid Reflux (GERD) N History of abnormal pap N Cancer N Stroke N Varicosities N Neurologic/Epilepsy N Endometriosis N High Cholesterol N Headaches N Fibromyalgia N Kidney Disease N Heart Problems N Kidney or Bladder Problems N Thyroid Problems N GI Problems N Eating Disorder N Anemia N Art (IVF or FET) N Psychiatric Illness N Ovarian Cancer N Diabetes N Pulmonary (TB, Asthma) N Hepatitis/Liver Disease N No Past Medical History N Eczema N Urinary Tract Infection N Abuse/Domestic Violence N Asthma N Trauma/Violence N Depression/ depression N Heart Disease N Pre-Eclampsia N Hypertension N Osteoporosis N Thrombophilias N Gynecological History Statement/Question Response Date of Last Mammogram 07/18/2023 Date of LMP 08/15/2021 On BCP's at Conception? N N Was last menstrual period normal N STIs/STDs N HPV Vaccine N Duration of Flow (days) 4 Current Control Method Hysterectom y Age at First Child 41 Sexually Active? Y None Menses Monthly N Age of first menstrual cycle 14 Sexual Problems? N Desired Control Method None LMP Unknown 04/17/2023 N Obstetrics History GPAL:G 2 P 2 0 0 2 Type Value Full Term 2 Living 2 Total 2 Past Encounters Encounter ID Performer Location Encounter Start Date Encounter Closed Date Diagnosis/Indication Diagnosis SNOMED-CT Code Diagnosis ICD10 Code Diagnosis Note [id number] [facility] [address] [address] 11/15/2023 11:19:33 11/15/2023 13:28:51 Menopausal symptom 36941311 N95.1 We discussed Menopausal Hormone therapy (MHT) for women with intact uterus with the goals of reliving vaso-motor sx's using estrogen/p rogestin therapy (EPT) using lowest doses for shortest duration in women 40-59yo. Contraindi cations include: Hx of DVT or thrombolic events, High cholestero l, Hx of breast cancer, known CHD, active liver disease, unexplaine d vag bleeding, high risk endometria l cancer, TIA. Side effects can include but are not limited to: Irregular vag bleeding,, breast tenderness , nausea, weight changes, libido changes, nausea. Adverse Rxn: Elevated BP migraine w/ visual changes, breast cancer dx, RI/stroke, DVT/PE, Endometria l cancer. Please contact office with any new or worsening side effects or adverse reactions. Or if a medical emergency please go to nearest ED/[facility] for further evaluation . Partial hysterecto my--starti ng with estradiol only therapy.RT O x 4wks med checkNAMS H/O's given Time spent in visit is a total of 30 mins with at least 50% of visit consisting of counseling and review of plan of care. [id number] [facility] [address] [address] 12/05/2023 09:17:00 12/05/2023 09:40:58 Menopausal symptom [id number] N95.1 Patient is here today for a medicaton check of HRT. She voices goals of therapy have been met with use of this therapy. She denies neg side effects. She is eating, drinking, sleeping well; moods are stable at this time. Wishes to continue this method of HRT and will contact us if any changes need to be made to her curent regimen. Appropriat e to continue this medication . Health Hx was reviewed and updated as reported in chart. Time spent in visit is a total of 21 mins with at least 50% of visit consisting of counseling and review of plan of care. Health Concerns Section Related Observation LastModified by Organization Detai ls LastModified Time None Recorded Concern Status LastModified by Organization Details LastModified Time None Recorded Advance Directives Directive None Recorded Payers Encounter Date Sequence Insurance Name Policy Number Policy June Covered Member ID June Member ID Guarantor Name 11/15/2023 1 [id number] ([place] Jeffrey Ackerman [id number] Cadence Ackerman 12/05/2023 1 [employer] [id number] Jeffrey Ackerman [id number] Cadence Ackerman Notes Date Note Type Note Provider Name and Address Organization Details Recorded Time 4 text/html MenopauseReported bypatient.Onset/Timing :6-12 months; morning; afternoon; night Quality:night sweats; hot flashes ; affects quality of life Severity:moderate Duration:prolonged Context:no menses for over 1 year (Partial hysterectomy) Alleviating Factors:exercise; herbal remedies Aggravating Factors:heat; stress Associated Symptoms:no abdominal pain; no pelvic pain; no abnormal bleeding; no vaginal discharge; no dysuria; no dispareunia; no changes in bowel function; no fever; no vaginal dryness; no irritability; no depression; no anxiety; no skin changes; no loss of libido; no changes in urination Partial hysterectomy-Hx of endometriosis/Adenomyo sisIVF x 2 kidsHorrific periods HxStill with ovaries vasomotor sx'sMood shifts/PMSWeight gain Wheat allergy-never tested for celiacs Camila Crespo [facility] [address] [place], [address], [facility] 11/15/2023 13:05:48 4 text/html Here today for medication check of estradiol for hrt post surgical hysterectomy Camila Crespo [facility] [address], [place], [address], [facility] 12/05/2023 09:38:46 OBGyn Episode Ob Episode Information Episode Created Date Number of Fetuses Patient Bloodtype Patient rh Status Prepregnancy Weight lbs Domestic Partner Domestic Partner Phone Father Name Dope Dry House Operator Status 11/15/19 24 1 CLOSED Fetus Data First Name Last Name Admitted to NICU Weight (g) Sex Living Outcome Pediatric Complications Fetus ID Race Codes Race Delivery Type 2721.55 2 F Full Term [id number] Primary Arash Calculation Initial Arash Date Initial Exam Date Initial Exam Provider Initial Ultrasound Date Last Menstrual Period Date Ultra Sound Weeks Gestation 0 Eighteen To Twenty Week Arash Update Ultra Sound Date Fundal Height At Umbil Quickening Date Ultra Sound Latest Weeks Gestation Final Arash Confirmed By Final Arash Confirmed Date Final Arash Date Ultra Sound Latest Days Gestation 0 0 Menstrual History Last Menstrual Date Menses Monthly On Bcp Conception Prior Menses Frequency Hcg Plus Date Menarche Onset Age Delivery Information Delivery Date Delivery Type Labor Anesthesia Weeks Gestation Incision Type Labor Labor Length Hrs Delivered By Post Complications Tubal Sterilization Discharge Date Comments 8 Discharge Information Feeding Method Contraceptive Method Maternal HG B and HCT Levels Ob Episode Information Episode Created Date Number of Fetuses Patient Bloodtype Patient rh Status Prepregnancy Weight lbs Domestic Partner Domestic Partner Phone Father Name Dope Dry House Operator Status 11/15/19 24 1 CLOSED Fetus Data First Name Last Name Admitted to NICU Weight (g) Sex Living Outcome Pediatric Complications Fetus ID Race Codes Race Delivery Type 2721.55 2 F Full Term [id number] Repeat Arash Calculation Initial Arash Date Initial Exam Date Initial Exam Provider Initial Ultrasound Date Last Menstrual Period Date Ultra Sound Weeks Gestation 0 Eighteen To Twenty Week Arash Update Ultra Sound Date Fundal Height At Umbil Quickening Date Ultra Sound Latest Weeks Gestation Final Arash Confirmed By Final Arash Confirmed Date Final Arash Date Ultra Sound Latest Days Gestation 0 0 Menstrual History Last Menstrual Date Menses Monthly On Bcp Conception Prior Menses Frequency Hcg Plus Date Menarche Onset Age Delivery Information Delivery Date Delivery Type Labor Anesthesia Weeks Gestation Incision Type Labor Labor Length Hrs Delivered By Post Complications Tubal Sterilization Discharge Date Comments 9 Discharge Information Feeding Method Contraceptive Method Maternal HG B and HCT Levels
--- OUTSIDE RECORDS SUMMARY | 2024-08-05 09:13 | XMS_ITS | Encounter Summary ---
Author Organization [facility] [place] [facility] Address [address] [place] [address] Phone Care Team Providers Care Land Inspector Name Role Phone Nestor Mckinley MD Primary Care Provider [phone] Bernarda Nicholson MD Unavailable [phone] Abdirahman Ram MD Unavailable [phone] No, Physician Primary Care Provider [phone] Nestor Mckinley MD Primary Care Provider [phone] Abhishek Elizabeth MD Unavailable [phone] Todd Gomez MD Primary Care Provider [phone] Encounter Details Date Type Department Care Team (Latest Contact Info) Description 08/23/2017 Orders Only [facility] CONVERSION Scanning, Provider Social History Tobacco Use Types Packs/Day Years Used Date Smoking Tobacco: Never Smokeless Tobacco: Never Alcohol Use Standard Drinks/Week Comments No 0 (1 standard drink = 0.6 oz pur e alcohol) Comments Yes Sex and Gender Information Value Date Recorded Sex Assigned at Not on file Legal Sex Female 10:37 AM RESIDENTIAL SPECIALIST Gender Identity Not on file Sexual Orientation Not on file documented as of this encounter Plan of Treatment Not on file documented as of this encounter Procedures Procedure Name Priority Date/Time Associated Diagnosis Comments OBSTETRIC/GYNECOLOGY ULTRASONOGRAPHY REPORT 09/06/2017 9:42 AM CDT OBSTETRIC/GYNECOLOGY ULTRASONOGRAPHY REPORT 08/23/2017 9:14 AM RESIDENTIAL SPECIALIST documented in this encounter Results * OBSTETRIC/GYNECOLOGY ULTRASONOGRAPHY REPORT (09/06/2017 9:42 AM CDT) Anatomical Region Laterality Modality Ultrasound us Provider Scanning IMG OB US PROCEDURES Edited Re sult - Final * OBSTETRIC/GYNECOLOGY ULTRASONOGRAPHY REPORT (08/23/2017 9:14 AM RESIDENTIAL SPECIALIST) Anatomical Region Laterality Modality Ultrasound us Provider Scanning IMG OB US PROCEDURES Final Res ult documented in this encounter Visit Diagnoses Not on filedocumented in this encounter Care Teams Land Inspector Relationship Specialty Start Date End Date Nestor Mckinley MD [address] [place] [address] PCP - General 07/12/17 02/19/19 No, Physician PCP - General 02/20/19 04/05/19 Nestor Mckinley MD [address] [place] [address] PCP - General 04/06/19 11/11/21 Todd Gomez MD [address] [address] PCP - General Family Medicine 11/12/21 Bernarda Nicholson MD [address] [place] [address] Marketing Admin Obstetrics and Gynecology 09/06/17 Abdirahman Ram MD [address] [place] [address] Consulting Physician Obstetrics and Gynecology 10/01/18 Abhishek Elizabeth MD [address] [address] Obstetrics and Gynecology 11/11/21 documented as of this encounter
--- OUTSIDE RECORDS SUMMARY | 2024-08-05 09:13 | XMS_ITS | Encounter Summary ---
Author Organization [facility] Address [address] [place] [address] Phone Care Team Providers Care Hydrologic Modeler Name Role Phone Nestor Mckinley MD Primary Care Provider [phone] Bernarda Nicholson MD Unavailable [phone] Abdirahman Ram MD Unavailable [phone] No, Physician Primary Care Provider [phone] Nestor Mckinley MD Primary Care Provider [phone] Abhishek Elizabeth MD Unavailable + [phone] Todd Gomez MD Primary Care Provider Encounter Details Date Type Department Care Team (Late st Contact Info) Description 08/18/2017 Orders Only [facility] ProviderKassandra MD [address] [place] [address] Social History Tobacco Use Types Packs/Day Years Used Date Smoking Tobacco: Never Smokeless Tobacco: Never Alcohol Use Standard Drinks/Week Comments No 0 (1 standard drink = 0.6 oz pur e alcohol) Comments Yes Sex and Gender Information Value Date Recorded Sex Assigned at Not on file Legal Sex Female 10:37 AM MECHANICAL LABORATORY TECHNICIAN Gender Identity Not on file Sexual Orientation Not on file documented as of this encounter Plan of Treatment Not on file documented as of this encounter Procedures Procedure Name Priority Date/Time Associated Diagnosis Comments CYTOLOGY 08/18/2017 12:00 AM MECHANICAL LABORATORY TECHNICIAN documented in this encounter Results * CYTOLOGY (08/18/2017 12:00 AM MECHANICAL LABORATORY TECHNICIAN) Narrative 08/18/2017 12:00 AM MECHANICAL LABORATORY TECHNICIAN Ordered by an unspecified provider. us Historical Provider MD LAB CYTOLOGY ORDERABLES F inal Result documented in this encounter Visit Diagnoses Not on filedocumented in this encounter Care Teams Hydrologic Modeler Relationship Specialty Start Date End Date Nestor Mckinley MD [address] [place] [address] PCP - General 07/12/17 02/19/19 No, Physician PCP - General 02/20/19 04/05/19 Nestor Mckinley MD [address] [place] [address] PCP - General 04/06/19 11/11/21 Todd Gomez MD [address] [facility] [address] [place], [place] [id number] PCP - General Family Medicine 11/12/21 Bernarda Nicholson MD [address] [place] [address] Pre Kindergarten Teacher Obstetrics and Gynecology 09/06/17 Abdirahman Ram MD [address] [place] [address] Consulting Physician Obstetrics and Gynecology 10/01/18 Abhishek Elizabeth MD [address] [place], [place] [id number] Obstetrics and Gynecology 11/11/21 documented as of this encounter
--- OUTSIDE RECORDS SUMMARY | 2024-08-05 09:13 | XMS_ITS | Encounter Summary ---
Author Organization [facility] Address [address] [place] [address] Care Team Providers Care Geothermal Technician Name Role Phone Nestor Mckinley MD Primary Care Provider [phone] Bernarda Nicholson MD Unavailable [phone] Abdirahman Ram MD Unavailable [phone] No, Physician Primary Care Provider [phone] Nestor Mckinley MD Primary Care Provider [phone] Abhishek Elizabeth MD Unavailable [phone] Todd Gomez MD Primary Care Provider [phone] Encounter Details Date Type Department Care Team (Late st Contact Info) Description 10/13/[address] [facility] Health Information Management [facility] [place] [address] Scanning, Provider Social History Tobacco Use Types Packs/Day Years Used Date Smoking Tobacco: Never Smokeless Tobacco: Never Alcohol Use Standard Drinks/Week Comments No 0 (1 standard drink = 0.6 oz pur e alcohol) Comments Yes Sex and Gender Information Value Date Recorded Sex Assigned at Not on file Legal Sex Female 10:37 AM COMMAND AND CONTROL SPECIALIST Gender Identity Not on file Sexual Orientation Not on file documented as of this encounter Plan of Treatment Not on file documented as of this encounter Procedures Procedure Name Priority Date/Time Associated Diagnosis Comments OBSTETRIC/GYNECOLOGY ULTRASONOGRAPHY REPORT 10/13/2017 2:01 PM CDT documented in this encounter Results * OBSTETRIC/GYNECOLOGY ULTRASONOGRAPHY REPORT (10/13/2017 2:01 PM CDT) Anatomical Region Laterality Modality Ultrasound us Provider Scanning IMG OB US PROCEDURES Final Res ult documented in this encounter Visit Diagnoses Not on filedocumented in this encounter Care Teams Geothermal Technician Relationship Specialty Start Date End Date Nestor Mckinley MD [address] [place] [address] PCP - General 07/12/17 02/19/19 No, Physician PCP - General 02/20/19 04/05/19 Nestor Mckinley MD [address] [place] [address] PCP - General 04/06/19 11/11/21 Todd Gomez MD [address] [place] [address] PCP - General Family Medicine 11/12/21 Bernarda Nicholson MD [address] [place] [address] Commissioner Of Relocation Services Obstetrics and Gynecology 09/06/17 Abdirahman Ram MD [address] [place] [address] Consulting Physician Obstetrics and Gynecology 10/01/18 Abhishek Elizabeth MD [address] [place] [address] Obstetrics and Gynecology 11/11/21 documented as of this encounter
--- OUTSIDE RECORDS SUMMARY | 2024-08-05 09:13 | XMS_ITS | Continuity of Care Document ---
Author Organization [facility] Address [address] [place] [address] Phone Care Team Providers Care Director Learning Name Role Phone Carrie Finn MD Unavailable Unavailable Medications Medication Instructions Dosage Effective Dates (start - stop) Status Comments CENTEX PSE 600-120MG TABS 1 BID - Active AMOXICILLIN 500MG CAPS 1 TID - No Longer Active Advance Directives Directive Yes / No Effective Date File Name No Information Encounters Encounter Description Practice Location Reason(s) For Visit Diagnoses Date Provider Providers Copied on Encounter [facility], [address], [place], [place], [id number], tel:[phone] [facility] No Information Huma Butler. [address], [place], [place], [id number], . tel:[phone] [facility], [address] [place] [address], [id number], tel:[phone] [facility] IM ACUTE URI NOSAC SEROUS OTITIS MEDIA Huma Butler. [address], [place], [id number], [place]. tel:[phone] [facility], [address], [place], [place], [id number], tel:[phone] [facility] ROUTINE MEDICAL EXAM Huma Butler. [address], [place], [place], [id number], . tel:[phone] Family History Family Member Type Diagnosis Age At Onset No Information Payers Payer name Insurance type Covered democrat ID Authormarca sherita(s) No Information Social History Type Description Quantity Date Captured Comments Sex Female Smoking Status No Information Chief Complaint And Reason For Visit No Information Reason For Referral Reason For Referral No Information History Of Present Illness Encounter Date Complaint History Of Prese nt Illness No Information Functional Status Date Functional Assessmen t No Information Instructions Date Instruction Additional Infor mation No Information Assessments Type Assessment Date No Information Patient Care Teams Name Effective Dates (start - stop) Status Members No Information
== END 2024-08-05 08:53 | disposition home or self-care (01) ==
LOC: ANHIMG 08:54
PROVIDERS: PCP Family Medicine; Visit Provider Family Medicine
DX: Z12.31 Encounter for screening mammogram for malignant neoplasm of breast (principal)
CPT/HCPCS: 77063; 77067